=== PATIENT | female | born 1985 | race Caucasian/White ===

== ENCOUNTER 2016-06-08 12:30 | Emergency (ER) | payer OTHER ==
[~2016-06-08] VITALS: Ht 172.7 cm; Wt 104.7 kg
[~2016-06-08 12:30] MED LIST: GABA-113 PO; IBUP-103 PO; LEVO1TAB35 PO
[2016-06-08 12:32] VITALS: TEMP 36.8; Ht 172.7 cm; Wt 104.7 kg
[2016-06-08] MEDS ORDERED: SODIUM CHLORIDE 0.9% 1000ML 1,000 ML IV STA (12:42)
[2016-06-08] MEDS ORDERED: ACETAMINOPHEN 325 MG TAB PO STA (12:42)
[2016-06-08] MEDS ORDERED: ONDANSETRON INJ 2 MG/ML 2 ML VIAL IV STA ×2 (12:42→13:19)
[2016-06-08] MEDS ORDERED: ALBUTEROL HFA 8 GM INHALER INH ONE (12:45)
--- NOTE | 2016-06-08 12:45 | EMERGENCY ROOM VISIT NOTE ---
History Report prepared by Moisés: Jono Ramirez Under the Supervision of: Dr. Evelin Spivey M.D. First contact with patient: 12:37 Chief Complaint: COUGH Stated Complaint: COUGH History of Present Illness The patient is a 30 year old female who presents to the Emergency Room with complaints of a cough that began 2 days ago. The patient is experiencing some abdominal pain due to her cough. She is also experiencing some vomiting as well. She denies any history of asthma. She denies any fevers. The patient will be 30 weeks tomorrow. Source of History: patient Onset: 2 days ago Position: other (lungs) Symptom Intensity: moderate Quality: other (cough) Timing: other (episodic) Associated Symptoms: + abdominal pain, + vomiting, No fevers Review of Systems See HPI for pertinent positives & negatives. A total of 10 systems reviewed and were otherwise negative. Past Medical & Surgical Medical Problems: (1) section (2) Cholecystectomy Family History FH: cancer Social History Smoking Status: Former Smoker Alcohol Use: none Drug Use: none Marital Status: single Housing Status: lives with family Current/Historical Medications Scheduled Azithromycin (Zithromax Z-Riccardo), 1 PKT PO UD Hydrocodone/Acetaminophen 10MG/325MG ([place] 10MG/325MG), 1 TAB PO TID Ondasetron Odt (Zofran Odt), 4 MG SL Q6H Oseltamivir (Tamiflu), 75 MG PO BID Prednisone (Prednisone), 20 MG PO DAILY Allergies Coded Allergies: Chlorpromazine (Verified Allergy, Mild, HIVES, 11/30/13) Ketorolac Tromethamine (Verified Allergy, Mild, HIVES, 11/30/13) Cephalexin (Verified Allergy, Unknown, ., 11/30/13) Penicillins (Verified Allergy, Unknown, ., 11/30/13) Physical Exam Vital Signs Date Time Temp Pulse Resp B/P Pulse Ox O2 Delivery O2 Flow Rate FiO2 06/08/16 14:48 63 18 115/60 96 Room Air 06/08/16 13:12 Room Air 06/08/16 12:32 36.8 89 18 135/74 96 Room Air Physical Exam CONSTITUTIONAL: Frequent coughing. HEENT: No icterus, moist mucous membranes NECK: No meningismus, trachea is midline. CARDIOVASCULAR: Regular rate, normal perfusion RESPIRATORY: Unlabored breathing. Mild wheezes in all lung zapata. GASTROINTESTINAL: Non-tender GENITOURINARY: No flank tenderness MUSCULOSKELETAL: Full range of motion NEUROLOGIC: No acute gross focal deficits. PSYCHIATRIC: Normal affect SKIN: Normal for ethnicity. Medical Decision & Procedures ER Provider Diagnostic Interpretation: X-ray results as stated below per interpretation by me and the radiologist. CHEST 2 VIEWS ROUTINE CLINICAL HISTORY: Cough. 30 weeks . COMPARISON STUDY: Chest radiograph September 08, 2012. TECHNIQUE: The abdomen and pelvis were double shielded due to . PA and lateral chest radiographs were obtained. FINDINGS: No pneumothorax or pleural effusion is present. There are cholecystectomy clips. Pulmonary vascularity is normal. Cardiac size is normal. There is subtle interstitial thickening. Few nodular opacities are noted within the lungs. IMPRESSION: Subtle interstitial thickening with a few scattered nodular opacities within lungs. The findings favor an infectious process. No confluent consolidation. Electronically signed by: Benny Azevedo M.D. 06/08/2016 1:42 PM Dictated Date/Time: 06/08/2016 1:41 PM Laboratory Results 06/08/16 12:55 Red Blood Count 3.98, Mean Corpuscular Volume 88.9, Mean Corpuscular Hemoglobin 30.9, Mean Corpuscular Hemoglobin Concent 34.7, Mean Platelet Volume 8.9, Neutrophils (%) (Auto) 79.7, Lymphocytes (%) (Auto) 12.4, Monocytes (%) (Auto) 6.1, Eosinophils (%) (Auto) 0.5, Basophils (%) (Auto) 0.1, Neutrophils # (Auto) 13.04, Lymphocytes # (Auto) 2.03, Monocytes # (Auto) 0.99, Eosinophils # (Auto) 0.08, Basophils # (Auto) 0.01 06/08/16 12:55 Test 06/08/16 12:55 White Blood Count 16.35 K/uL (4.8-10.8) Red Blood Count 3.98 M/uL (4.2-5.4) Hemoglobin 12.3 g/dL (12.0-16.0) Hematocrit 35.4 % (37-47) Mean Corpuscular Volume 88.9 fL (80-100) Mean Corpuscular Hemoglobin 30.9 pg (25-34) Mean Corpuscular Hemoglobin Concent 34.7 g/dl (32-36) Platelet Count 145 K/uL (130-400) Mean Platelet Volume 8.9 fL (7.4-10.4) Neutrophils (%) (Auto) 79.7 % Lymphocytes (%) (Auto) 12.4 % Monocytes (%) (Auto) 6.1 % Eosinophils (%) (Auto) 0.5 % Basophils (%) (Auto) 0.1 % Neutrophils # (Auto) 13.04 K/uL (1.4-6.5) Lymphocytes # (Auto) 2.03 K/uL (1.2-3.4) Monocytes # (Auto) 0.99 K/uL (0.11-0.59) Eosinophils # (Auto) 0.08 K/uL (0-0.5) Basophils # (Auto) 0.01 K/uL (0-0.2) RDW Standard Deviation 42.4 fL (36.4-46.3) RDW Coefficient of Variation 13.1 % (11.5-14.5) Immature Granulocyte % (Auto) 1.2 % Immature Granulocyte # (Auto) 0.20 K/uL (0.00-0.02) Red Blood Cell Morphology Unremarkable Anion Gap 13.0 mmol/L (3-11) Est Creatinine Clear Calc Drug Dose 187.7 ml/min Estimated GFR () 144.9 Estimated GFR (Non- 125.0 BUN/Creatinine Ratio 8.9 (10-20) Calcium Level 8.5 mg/dl (8.5-10.1) Labs reviewed by ED physician. Medications Administered Medications (Trade) Dose Ordered Sig/Yomi Route Start Time Stop Time Status Last Admin Dose Admin Sodium Chloride (Nss 1000ml) 1,000 ml @ 0 mls/hr Q0M STAT IV 06/08/16 12:42 06/08/16 12:46 DC 06/08/16 13:09 0 MLS/HR Ondansetron HCl (Zofran Inj) 4 mg NOW STAT IV 06/08/16 12:42 06/08/16 12:46 DC 06/08/16 13:08 4 MG Acetaminophen (Tylenol Tab) 650 mg NOW STAT PO 06/08/16 12:42 06/08/16 12:46 DC 06/08/16 13:09 650 MG Albuterol (Ventolin Hfa Inhaler) 2 puffs NOW ONCE INH 06/08/16 12:45 06/08/16 12:46 DC 06/08/16 13:08 2 PUFFS Ondansetron HCl (Zofran Inj) 4 mg NOW STAT IV 06/08/16 13:19 06/08/16 13:20 DC 06/08/16 13:35 4 MG ED Course 1237: Past medical records reviewed. The patient was evaluated in room C2. A complete history and physical examination was performed. 1242: Acetaminophen 650 mg PO, Zofran Inj 4 mg IV, Sodium Chloride 1000 ml @ 0 mls/hr Wide Open IV 1245: Albuterol 2 puffs INH 1319: Zofran Inj 4 mg IV 1445: Upon reexamination the patient is resting. I discussed results and treatment plan with the patient. She verbalizes agreement and understanding. The patient is ready for discharge. Medical Decision Differential diagnoses include but are not limited to; viral syndrome, pneumonia , influenza, and wheezing. 40-year-old 30 weeks presents to emergency room for symptoms of viral infection including cough, rhinorrhea several episodes of nonbilious nonbloody vomiting and loose stools with crampy abdominal pain at times. On exam she had mild wheezing in all zapata without prior history of asthma. She refused influenza swab. Chest x-ray negative for obvious pneumonia. We discussed the pros and cons of various treatment options and she was subsequently given an albuterol inhaler here with spacer as well as prescriptions for prednisone, Zofran oral dissolvable tablets, as well as Zithromax and Tamiflu. Patient had no additional questions or concerns prior to discharge and was clearly able to repeat the risks and benefits and treatment options back to me. Impression Primary Impression: Viral syndrome Additional Impressions: Wheezing, Scribe Attestation The scribe's documentation has been prepared under my direction and personally reviewed by me in its entirety. I confirm that the note above accurately reflects all work, treatment, procedures, and medical decision making performed by me. Departure Information Dispostion Home / Self-Care Prescriptions Ondasetron Odt (ZOFRAN ODT) 4 Mg Tab 4 MG SL Q6H for Nausea, #20 TAB Prov: Evelin Spivey MD 06/08/16 Oseltamivir (Tamiflu) 75 Mg Cap 75 MG PO BID, #10 CAP Prov: Evelin Spivey MD 06/08/16 Azithromycin (ZITHROMAX Z-RICCARDO) 250 Mg Tab 1 PKT PO UD for 5 Days, #6 TAB Prov: Evelin Spivey MD 06/08/16 Prednisone (Prednisone) 20 Mg Tab 20 MG PO DAILY for 5 Days, #5 TAB Prov: Evelin Spivey MD 06/08/16 Referrals No Doctor, Assigned (PCP) Forms HOME CARE DOCUMENTATION FORM, IMPORTANT VISIT INFORMATION Patient Instructions A Signature Page, ED Bronchitis Viral, ED URI Viral W Wheezing, ED Viral Syndrome, [facility]
[2016-06-08] MEDS ORDERED: HYDR-4079 PO (12:49)
[2016-06-08 13:08] LABS: HEMATOCRIT 35.4 % (37-47); MEAN CELL VOLUME 88.9 fL (80-100); MEAN CORPUSCULAR HEMOGLOBIN 30.9 pg (25-34); MEAN CORPUSCULAR HGB CONC 34.7 g/dl (32-36); MEAN PLATELET VOLUME 8.9 fL (7.4-10.4); PLATELET COUNT 145 K/uL (130-400); RED BLOOD COUNT 3.98 M/uL (4.2-5.4); WHITE BLOOD COUNT 16.35 K/uL (4.8-10.8)
[2016-06-08 13:27] LABS: BUN/CREATININE RATIO 8.9 (10-20); CALCIUM 8.5 mg/dl (8.5-10.1); CREATININE 0.55 mg/dl (0.60-1.20); POTASSIUM 3.4 mmol/L (3.5-5.1)
[2016-06-08 13:29] LABS: BASO % 0.1 %; BASO ABS # 0.01 K/uL (0-0.2); COMPLETE YES; EOS % 0.5 %; IG% 1.2 %; LYMPH % 12.4 %; LYMPH ABS # 2.03 K/uL (1.2-3.4); MONO % 6.1 %; NEUT % 79.7 %
--- NOTE | 2016-06-08 13:44 | DIAGNOSTIC IMAGING REPORT ---
CHEST 2 VIEWS ROUTINE CLINICAL HISTORY: Cough. 30 weeks . COMPARISON STUDY: Chest radiograph September 08, 2012. TECHNIQUE: The abdomen and pelvis were double shielded due to . PA and lateral chest radiographs were obtained. FINDINGS: No pneumothorax or pleural effusion is present. There are cholecystectomy clips. Pulmonary vascularity is normal. Cardiac size is normal. There is subtle interstitial thickening. Few nodular opacities are noted within the lungs. IMPRESSION: Subtle interstitial thickening with a few scattered nodular opacities within lungs. The findings favor an infectious process. No confluent consolidation. Electronically signed by: Benny Azevedo M.D. 06/08/2016 1:42 PM Dictated Date/Time: 06/08/2016 1:41 PM
[2016-06-08] MEDS ORDERED: PRED20TA PO (14:39)
[2016-06-08] MEDS ORDERED: AZITTAB PO (14:39)
[2016-06-08] MEDS ORDERED: OSEL75CA12 PO (14:40)
[2016-06-08] MEDS ORDERED: ONDA4TAB10 SL (14:40)
[2016-06-08 14:48] VITALS: BP 115/60; PULSE 63; O2SAT 96
[2016-08-01] MEDS ORDERED: HYDR-5688 PO (11:48)
[2016-08-01] MEDS ORDERED: ONDA4TAB46 PO (11:48)
[2016-08-01] MEDS ORDERED: PEDICHW50 PO (11:48)
== END 2016-06-08 14:50 | disposition home or self-care (01) ==
LOC: C.EDB 12:31 → C.EDC 14:50
DX: O26.93 Pregnancy related conditions, unspecified, third trimester (principal); B34.9 Viral infection, unspecified; R06.2 Wheezing; Z90.49 Acquired absence of other specified parts of digestive tract; Z87.891 Personal history of nicotine dependence; Z79.899 Other long term (current) drug therapy; Z88.0 Allergy status to penicillin; Z88.8 Allergy status to other drugs, medicaments and biological substances; Z80.9 Family history of malignant neoplasm, unspecified

== ENCOUNTER 2016-08-09 10:18 | Inpatient (IN) | payer OTHER ==
--- NOTE | 2016-08-01 12:12 | PAT Medication Instructions ---
Service Date Aug 01, 2016. Current Home Medication List Hydrocodone/Acetaminophen 5MG/325MG ([place] 5MG/325MG), 1 TABLET PO PRN PRN for Pain Ondansetron Hcl (Zofran), 4 MG PO PRN PRN for Nausea Pediatric Multiple Vitamin W/ ([place] Chewable), 2 TAB PO QAM Medication Instructions For Your Scheduled Surgery - Hold the following medications the morning of surgery: Pediatric Multiple Vitamin W/ ([place] Chewable), 2 TAB PO QAM - Take the following medications the morning of surgery with a sip of water: Ondansetron Hcl (Zofran), 4 MG PO PRN PRN for Nausea Hydrocodone/Acetaminophen 5MG/325MG ([place] 5MG/325MG), 1 TABLET PO PRN PRN for Pain (okay to take up to 4 hours prior to surgery if needed) - Take the following medications as scheduled the night before surgery: Ondansetron Hcl (Zofran), 4 MG PO PRN PRN for Nausea Hydrocodone/Acetaminophen 5MG/325MG ([place] 5MG/325MG), 1 TABLET PO PRN PRN for Pain If you have any questions please call us at [phone] (Akiko Batista PA-C) or [phone] or [phone]
[2016-08-01 13:46] LABS: BASO % 0.2 %; BASO ABS # 0.02 K/uL (0-0.2); COMPLETE YES; EOS % 0.7 %; HEMATOCRIT 38.7 % (37-47); IG% 2.3 %; LYMPH ABS # 1.81 K/uL (1.2-3.4); MEAN CELL VOLUME 88.6 fL (80-100); MEAN CORPUSCULAR HEMOGLOBIN 30.7 pg (25-34); MEAN CORPUSCULAR HGB CONC 34.6 g/dl (32-36); MEAN PLATELET VOLUME 9.4 fL (7.4-10.4); MONO % 7.7 %; NEUT % 74.1 %; PLATELET COUNT 144 K/uL (130-400); RED BLOOD COUNT 4.37 M/uL (4.2-5.4); WHITE BLOOD COUNT 12.09 K/uL (4.8-10.8)
--- NOTE | 2016-08-01 15:25 | HISTORY & PHYSICAL EXAMINATION ---
DATE OF ADMISSION: 08/14/2016 CHIEF COMPLAINT: Term elective repeat section. HISTORY OF PRESENT ILLNESS: The patient is a 30-year-old female para 1-0-0-1 who presents for an elective repeat section. Patient refusing a trial of labor after . PAST MEDICAL HISTORY: Significant for MTHFR homozygous gene mutation. She does have a history of cardiac surgery as a child, unsure if this involved the valve or just VSD repair. The patient had a cardiology consult respectfully and this had a normal EKG with no evidence of any findings that were worrisome by the offline cutter. SOCIAL HISTORY: The patient is a smoker. She is on narcotics for back pain, otherwise denies alcohol. PAST SURGICAL HISTORY: Cardiac surgery as described as a child and previous , cholecystectomy 2007, tonsils at age 11 and ovarian cyst at age 2 months. ALLERGIES: CIPRO, KETOROLAC, Chlorpromazin, AND PENICILLIN. The patient is able to take amoxicillin however. MEDICATIONS: vitamins. PHYSICAL EXAMINATION: HEAD, EYES, EARS, NOSE, AND THROAT: Within normal limits. LUNGS: Clear to auscultation. COR: Regular rate and rhythm. ABDOMEN: Soft, nontender, gravid. GBS is positive. NEUROLOGICALLY: Intact. MTDD
[~2016-08-09] VITALS: Ht 172.7 cm; Wt 106.0 kg
[2016-08-09] VITALS (9 sets, daily range): BP systolic 122–124; BP diastolic 77–78; PULSE 56–68; TEMP 36.6–36.8; O2SAT 94–97; Ht 172.7 cm; Wt 106.0 kg
[~2016-08-09 10:18] MED LIST changes: +CITRIC ACID/SODIUM CITRATE 15 ML UDC PO SCH; -GABA-113 PO; +HYDR-5688 PO; -IBUP-103 PO; -LEVO1TAB35 PO; +ONDA4TAB46 PO; +PEDICHW50 PO
[2016-08-09] MEDS ORDERED: LACTATED RINGER'S 1000ML 1,000 ML IV SCH ×2 (10:45→13:12)
[2016-08-09] MEDS ORDERED: CITRIC ACID/SODIUM CITRATE 15 ML UDC PO ONE (11:00)
[2016-08-09] MEDS ORDERED: LACTATED RINGER'S 1000ML 1,000 ML IV ONE (11:00)
--- NOTE | 2016-08-09 11:07 | History & Physical Bridge Note ---
H&P Re-Evaluation Bridge Note: I have examined the patient, reviewed the History & Physical and in the interval since the performance of the History & Physical I have noted the following changes of clinical significance: Patient spontaneously ruptured this morning, is scheduled for a repeat C/S, will proceed with her surgery.
[2016-08-09] MEDS ORDERED: CEFAZOLIN IV 3,000 MG in DEXTROSE 5% 50ML IV SCH (11:30)
[2016-08-09 11:37] LABS: HEMATOCRIT 39.6 % (37-47); MEAN CELL VOLUME 86.8 fL (80-100); MEAN CORPUSCULAR HEMOGLOBIN 30.9 pg (25-34); MEAN CORPUSCULAR HGB CONC 35.6 g/dl (32-36); MEAN PLATELET VOLUME 8.9 fL (7.4-10.4); PLATELET COUNT 146 K/uL (130-400); RED BLOOD COUNT 4.56 M/uL (4.2-5.4); WHITE BLOOD COUNT 16.11 K/uL (4.8-10.8)
[2016-08-09 11:59] LABS: COMPLETE YES; LYMPH ABS # 2.95 K/uL (1.2-3.4); LYMPHOCYTE % 18.3 %; META ABS # 0.27 K/uL (0-0); METAMYELOCYTE % 1.7 %; NEUTROPHILS % 77.4 %
[2016-08-09] MEDS ORDERED: MoRPHine SULFATE PF 1 MG/ML 10 ML AMP/VIAL ONE (12:11)
[2016-08-09] MEDS ORDERED: FENTANYL CITRATE INJ 50 MCG/1 ML 2 ML VIAL ONE (12:11)
[2016-08-09] MEDS ORDERED: METOCLOPRAMIDE HCL INJ 5 MG/ML 2 ML VIAL ONE (12:46)
[2016-08-09] MEDS ORDERED: OXYTOCIN INJ 10 UNITS/ML VIAL ONE ×4 (12:46→13:05)
[2016-08-09] MEDS ORDERED: OXYTOCIN INJ 30 UNITS in LACTATED RINGER'S 1000ML 1,000 ML IV SCH (13:12)
[2016-08-09] MEDS ORDERED: DIPHTHERIA/TETANUS/PERTUSSIS 0.5 ML SYR/VIAL IM. ONE (13:15)
[2016-08-09] MEDS ORDERED: MAGNESIUM HYDROXIDE SUSP 30 ML UDC PO PRN (13:15)
[2016-08-09] MEDS ORDERED: BENZOCAINE 20% AER SPR 82.5 GM CAN EXT PRN (13:15)
[2016-08-09] MEDS ORDERED: LANOLIN OINT EXT PRN ×2 (13:15)
[2016-08-09] MEDS ORDERED: SENNA 8.6 MG TAB PO PRN (13:15)
[2016-08-09] MEDS ORDERED: SUPERCREAM 0.870 % 15GM JAR EXT PRN (13:15)
[2016-08-09] MEDS ORDERED: HYDROCORTISONE ACETATE 25 MG SUPP PR PRN (13:15)
--- NOTE | 2016-08-09 13:15 | [facility] Post Operative Brief Note ---
Immediate Operative Summary Operative Date Aug 09, 2016. Pre-Operative Diagnosis 1. Term IUP 2. History of previous caesarean section 3. Patient requests a repeat caesarean section 4. Spontaneous rupture of membranes Post-Operative Diagnosis Same Procedure(s) Performed Repeat Lower Uterine Transverse Caesarean Section for the of a viable female child at 1243. Surgeon Dr. Gaytan General Sales Manager Surgeon(s) Dr. Rogers Estimated Blood Loss 500cc Findings Patient delivered a viable female in the vertex position via repeat C/S. An intact placenta with a 3 VC delivered manually 1at 1245 and sent to pathology. Cord blood obtained. normal uterus and bilateral tubes and ovaries noted. Patient and baby tolerated the surgery well and was sent to recovery with stable vital signs. Fluids (cc crystalloids) 1200 Specimens 1. Placenta: Examine. 2. Cord blood obtained. Drains Martinez to gravity Anesthesia Spinal Complication(s) None Disposition L&D
[2016-08-09] MEDS ORDERED: NALOXONE HCL INJ 1 MG in SODIUM CHLORIDE 0.9% 1000ML 1,000 ML IV PRN (13:37)
[2016-08-09] MEDS ORDERED: NALOXONE HCL INJ 0.08 MG in SYRINGE 1.8 ML IV PRN (13:37)
[2016-08-09] MEDS ORDERED: SODIUM CHLORIDE 0.9% 1000ML 1,000 ML IV PRN (13:37)
[2016-08-09] MEDS ORDERED: LACTATED RINGER'S 1000ML 500 ML IV PRN (13:37)
[2016-08-09] MEDS ORDERED: ONDANSETRON INJ 2 MG/ML 2 ML VIAL IV PRN (13:45)
[2016-08-09] MEDS ORDERED: NO NARCOTICS OR SEDATIVES SCH (13:45)
[2016-08-09] MEDS ORDERED: DiphenhydrAMINE HCL 50 MG/ML VIAL IV PRN (13:45)
[2016-08-09] MEDS ORDERED: LORAZEPAM 1 MG TAB PO PRN (13:45)
[2016-08-09] MEDS ORDERED: NALOXONE HCL 0.4 MG/1 ML VIAL/CARP IV PRN (13:45)
[2016-08-09] MEDS ORDERED: METOCLOPRAMIDE HCL INJ 20 MG in SODIUM CHLORIDE 0.9% 50ML 50 ML IV PRN (13:45)
[2016-08-09] MEDS ORDERED: LORAZEPAM INJ 0.5 MG in SYRINGE 0.75 ML IV PRN (13:45)
[2016-08-09] MEDS ORDERED: MoRPHine SULFATE PF 1 MG/ML 10 ML AMP/VIAL EPI PRN (13:45)
[2016-08-09] MEDS ORDERED: NALBUPHINE HCL INJ 10 MG/ML AMP IV PRN (13:45)
[2016-08-09] MEDS ORDERED: MoRPHine SULFATE 2 MG/ML CARP IV PRN (13:45)
[2016-08-09] MEDS ORDERED: EpHEDrine SULFATE INJ 50 MG/ML AMP IV PRN (13:45)
[2016-08-09] MEDS ORDERED: PROMETHAZINE HCL INJ 25 MG in SODIUM CHLORIDE 0.9% 50ML 50 ML IV PRN (13:45)
[2016-08-09] MEDS ORDERED: ACETAMINOPHEN 1000 MG/100 ML IV IV ONE (14:01)
[2016-08-09] MEDS: ACETAMINOPHEN IV 1,000 MG in EMPTY BAG 0 ML IV SCH ×2 (14:24→23:02)
[2016-08-09] MEDS: DiphenhydrAMINE HCL 50 MG/ML VIAL IV PRN ×2 (14:53→23:47)
--- NOTE | 2016-08-09 15:52 | OPERATIVE REPORT ---
DATE OF OPERATION: 08/09/2016 PREOPERATIVE DIAGNOSES: 1. Intrauterine at 38 weeks and 3 days gestation. 2. History of previous section, requesting repeat section. 3. Spontaneous rupture of membranes. POSTOPERATIVE DIAGNOSES: Same. OPERATIVE PROCEDURE: Repeat low transverse section. SURGEON: Dr. Gaytan. VENDOR RELATIONSHIP MANAGER: Dr. Rogers. ANESTHESIA: Spinal. ESTIMATED BLOOD LOSS: 500 mL. IV FLUIDS: 1200 mL crystalloid. SPECIMENS: Placenta and cord blood. DRAINS: Martinez to gravity. COMPLICATIONS: None. DISPOSITION: To labor and delivery. OPERATIVE FINDINGS: The patient delivered a viable female infant in the vertex position via repeat section. An intact placenta with 3-vessel cord was delivered manually at 12:45 p.m. and sent to pathology. Cord blood was obtained. Normal uterus and bilateral tubes and ovaries were noted. The patient and baby tolerated the surgery well and were sent to recovery with stable vital signs. OPERATIVE PROCEDURE IN DETAIL: The patient was taken to the operating room where spinal anesthesia was administered. The patient was immediately placed in dorsal supine position with a left lateral tilt and was prepped and draped in a manner appropriate for the procedure. Once anesthesia was found to be adequate, a Pfannenstiel skin incision was made over the previous surgical scar and was carried down through to a layer of the rectus fascia. The fascia was nicked in the midline and extended bilaterally with electrocautery. The superior aspect of the fascial incision was grasped with Damian clamps, elevated, and the rectus muscles were dissected off with the use of the curved Donaldson scissors and electrocautery. Likewise, the inferior aspect of the fascial incision was grasped with Damian clamps, elevated, and the rectus muscles were off with the use of the electrocautery and curved Donaldson scissors. The rectus muscles were in midline. There were omental adhesions to the anterior abdominal wall which were carefully cauterized and lysed. The peritoneal incision was then extended cephalocaudally with gentle traction. An Guilherme retaining retractor was placed within the abdomen. The bladder blade was then placed within the abdomen as well. The vesicouterine peritoneum was identified and a bladder flap was created with Metzenbaum scissors and digital traction. The bladder flap was pushed away from the lower uterine segment. A transverse incision was then made on the uterus and extended bilaterally with digital traction. The head was identified and delivered through the incision along with the rest of the body. Baby was bulb suctioned at delivery. Cord was clamped x2 and cut. The baby was immediately handed to an awaiting international marketing executive for further evaluation and management. Please see their notes for further baby assessment. Cord blood was then obtained and intact placenta with 3-vessel cord was delivered through the incision manually. The uterus was then exteriorized and wrapped in a moist laparotomy sponge. The uterus was then cleared of any trailing membrane and debris with the laparotomy sponge. The uterine incision was grasped with ring forceps 4 quadrants and was closed with 0 Vicryl suture in a continuous locking fashion. A second 0 Vicryl suture was used in imbricating fashion to ensure hemostasis. Any residual bleeding was suture ligated with 0 Vicryl suture in a [id number] interrupted fashion. Excellent hemostasis was noted at the uterine incision. The posterior cul-de-sac was then irrigated with warm saline solution. The uterus was then placed back within its normal anatomic position within the abdomen. The anterior cul-de-sac was then irrigated with warm saline solution. The uterine incision was then noted to be hemostatic once again. All instruments were then removed from the abdomen. Seprafilm was placed over the uterine incision along the fundus of the uterus. The Guilherme retractor was then removed from the abdomen. The rectus fascia was then grasped with Damian clamps and was closed with 0 Vicryl suture in continuous running fashion. The subcutaneous tissue was then reapproximated with 2-0 Vicryl suture in continuous running fashion. Skin was then closed with clarence. Excellent hemostasis was noted through all tissue layers. Both patient and baby tolerated the surgery well and was sent to recovery with stable vital signs. I attest to the content of the Intraoperative Record and any orders documented therein. Any exceptio ns are noted below.
--- NOTE | 2016-08-09 15:59 | Anesthesiology Progress Note ---
Anesthesia Post Op Note Date & Time Aug 09, 2016 at 15:59 Vital Signs Pain Intensity: 6.0 Notes Mental Status: alert / awake / arousable, participated in evaluation Pt Amnestic to Procedure: No Nausea / Vomiting: adequately controlled Pain: adequately controlled Airway Patency, RR, SpO2: stable & adequate BP & HR: stable & adequate Hydration State: stable & adequate Neuraxial Anesthesia: was administered, sensory block is resolving Anesthetic Complications: no major complications apparent
[2016-08-09] MEDS: SIMETHICONE 80 MG CHEW PO SCH ×2 (17:35→19:43)
[2016-08-09] MEDS: DOCUSATE SODIUM 100 MG CAP PO SCH (19:43)
[2016-08-09] MEDS: MEPERIDINE HCL 25 MG/ML CARP IV PRN (19:44)
[2016-08-10] VITALS (10 sets, daily range): BP systolic 108–127; BP diastolic 69–79; PULSE 55–85; TEMP 36.6–36.9; O2SAT 95–97
[2016-08-10] MEDS: MEPERIDINE HCL 25 MG/ML CARP IV PRN (05:15)
[2016-08-10] MEDS: ACETAMINOPHEN IV 1,000 MG in EMPTY BAG 0 ML IV SCH (05:56)
[2016-08-10] MEDS ORDERED: OXYCODONE/ACETAMINOPHEN 5-325 TAB PO PRN (07:30)
[2016-08-10] MEDS ORDERED: DC INTRASPINAL MORPHINE ONE (07:30)
[2016-08-10] MEDS ORDERED: MEPERIDINE HCL 50 MG/ML CARP IV PRN (07:30)
[2016-08-10] MEDS ORDERED: ONDANSETRON INJ 2 MG/ML 2 ML VIAL IV PRN (07:30)
[2016-08-10] MEDS ORDERED: ZOLPIDEM TARTRATE 5 MG TAB PO PRN (07:30)
[2016-08-10] MEDS ORDERED: NURSING VERBAL MED ORDER ONE (08:00)
[2016-08-10 08:10] LABS: BASO % 0.1 %; BASO ABS # 0.01 K/uL (0-0.2); COMPLETE YES; EOS % 0.7 %; HEMATOCRIT 39.2 % (37-47); IG% 1.2 %; LYMPH ABS # 1.56 K/uL (1.2-3.4); MEAN CELL VOLUME 88.5 fL (80-100); MEAN CORPUSCULAR HEMOGLOBIN 31.4 pg (25-34); MEAN CORPUSCULAR HGB CONC 35.5 g/dl (32-36); MEAN PLATELET VOLUME 9.1 fL (7.4-10.4); MONO % 5.2 %; NEUT % 83.8 %; PLATELET COUNT 122 K/uL (130-400); RED BLOOD COUNT 4.43 M/uL (4.2-5.4); WHITE BLOOD COUNT 17.35 K/uL (4.8-10.8)
[2016-08-10] MEDS: IBUPROFEN 600 MG TAB PO PRN ×3 (08:46→19:54)
[2016-08-10] MEDS: OXYCODONE HCL IR 5 MG TAB (IMMEDIATE RELEASE) PO PRN ×2 (08:47→19:54)
[2016-08-10] MEDS: SIMETHICONE 80 MG CHEW PO SCH ×4 (08:47→19:53)
[2016-08-10] MEDS: PRENATAL VITAMIN TAB PO SCH (08:48)
[2016-08-10] MEDS: FERROUS SULFATE 325 MG TAB PO SCH (08:48)
[2016-08-10] MEDS: DOCUSATE SODIUM 100 MG CAP PO SCH ×2 (08:48→19:53)
--- NOTE | 2016-08-10 09:49 | Surgery Progress Note ---
Surgery Progress Note Date of Service Aug 10, 2016. Subjective Post OP Day: 1 + ambulating, + feeling well Objective Vital Signs: Date Time Temp Pulse Resp B/P Pulse Ox O2 Delivery O2 Flow Rate FiO2 08/10/16 07:30 Room Air 08/10/16 07:30 36.9 65 18 127/79 95 Room Air 08/10/16 06:00 20 95 08/10/16 05:00 18 96 08/10/16 04:30 36.6 85 18 111/72 95 Room Air 08/10/16 04:00 20 96 08/10/16 03:00 18 95 08/10/16 02:00 18 97 08/10/16 01:00 18 96 08/10/16 00:00 36.8 55 18 108/69 95 Room Air 08/10/16 00:00 18 95 08/10/16 00:00 95 Room Air 08/09/16 23:05 20 95 08/09/16 22:05 20 95 08/09/16 21:05 16 94 08/09/16 20:05 20 95 08/09/16 19:50 36.8 56 20 124/78 95 Room Air 08/09/16 19:05 20 97 08/09/16 18:05 16 95 08/09/16 17:05 16 96 08/09/16 16:05 36.6 68 20 122/77 96 Room Air 08/09/16 16:05 96 Room Air 08/09/16 16:05 20 96 08/09/16 16:05 96 Room Air General Appearance: WD/WN, no apparent distress Abdomen: non tender, non distended, soft Incision(s): clean, dry, intact Extremities: normal inspection, no pedal edema Laboratory Results: Results Past 24 Hours Test 08/09/16 11:25 08/10/16 07:55 Range/Units White Blood Count 16.11 17.35 4.8-10.8 K/uL Red Blood Count 4.56 4.43 4.2-5.4 M/uL Hemoglobin 14.1 13.9 12.0-16.0 g/dL Hematocrit 39.6 39.2 37-47 % Mean Corpuscular Volume 86.8 88.5 80-100 fL Mean Corpuscular Hemoglobin 30.9 31.4 25-34 pg Mean Corpuscular Hemoglobin Concent 35.6 35.5 32-36 g/dl Platelet Count 146 122 130-400 K/uL Mean Platelet Volume 8.9 9.1 7.4-10.4 fL RDW Standard Deviation 43.0 43.9 36.4-46.3 fL RDW Coefficient of Variation 13.7 13.5 11.5-14.5 % Neutrophils % (Manual) 77.4 % Lymphocytes % (Manual) 18.3 % Monocytes % (Manual) 2.6 % Metamyelocytes % 1.7 % Neutrophils # (Manual) 12.47 1.4-6.5 K/uL Total Absolute Neutrophils 12.47 1.4-6.5 K/uL Lymphocytes # (Manual) 2.95 1.2-3.4 K/uL Total Absolute Lymphocytes 2.95 1.2-3.4 K/uL Monocytes # (Manual) 0.42 0.11-0.59 K/uL Metamyelocytes # 0.27 0-0 K/uL Red Blood Cell Morphology Unremarkable Neutrophils (%) (Auto) 83.8 % Lymphocytes (%) (Auto) 9.0 % Monocytes (%) (Auto) 5.2 % Eosinophils (%) (Auto) 0.7 % Basophils (%) (Auto) 0.1 % Neutrophils # (Auto) 14.54 1.4-6.5 K/uL Lymphocytes # (Auto) 1.56 1.2-3.4 K/uL Monocytes # (Auto) 0.91 0.11-0.59 K/uL Eosinophils # (Auto) 0.12 0-0.5 K/uL Basophils # (Auto) 0.01 0-0.2 K/uL Immature Granulocyte % (Auto) 1.2 % Immature Granulocyte # (Auto) 0.21 0.00-0.02 K/uL Assessment & Plan regular diet POD#1 advance care and diet
[2016-08-10] MEDS: OXYCODONE/ACETAMINOPHEN 5-325 TAB PO PRN ×2 (14:36→15:24)
[2016-08-10] MEDS ORDERED: BISACODYL 5 MG TABEC PO ONE (22:00)
[2016-08-11 00:01] VITALS: BP 116/78; PULSE 77; TEMP 36.5
[2016-08-11] MEDS: IBUPROFEN 600 MG TAB PO PRN ×4 (00:12→12:42)
[2016-08-11] MEDS: OXYCODONE/ACETAMINOPHEN 5-325 TAB PO PRN ×4 (00:12→12:42)
[2016-08-11 07:11] LABS: HEMATOCRIT 37.1 % (37-47)
[2016-08-11 07:45] VITALS: BP 127/81; PULSE 69; TEMP 36.9
[2016-08-11] MEDS: SIMETHICONE 80 MG CHEW PO SCH ×2 (08:36→12:40)
[2016-08-11] MEDS: FERROUS SULFATE 325 MG TAB PO SCH (08:37)
[2016-08-11] MEDS: DOCUSATE SODIUM 100 MG CAP PO SCH (08:37)
[2016-08-11] MEDS: PRENATAL VITAMIN TAB PO SCH (08:37)
[2016-08-11] MEDS ORDERED: NCDT21 TD (10:57)
[2016-08-11] MEDS ORDERED: HYDR-5688 PO (10:57)
[2016-08-11] MEDS ORDERED: MTR600X PO (10:57)
--- NOTE | 2016-08-11 10:59 | Discharge Instructions ---
Discharge Instructions Date of Service Aug 11, 2016. Admission Reason for Admission: Section Discharge Discharge Diagnosis / Problem: termpregnancy delivered Discharge Goals Goal(s): Routine recovery after Activity Recommendations Activity Limitations: as noted below Lifting Limitations: no more than 10 pounds, gradually increase as tolerated Exercise/Sports Limitations: gradually increase as tolerated May Resume Sexual Activity: after follow-up appointment Shower/Bathe: no limitations Driving or Machine Use: resume 3 days after discharge . Instructions / Follow-Up Instructions / Follow-Up next week for clarence ACTIVITY RECOMMENDATIONS: * Gradual return to full activity over the next 2-3 weeks. * No lifting - nothing heavier than baby over the next 2-3 weeks. * Do not engage in vigorous exercise, sexual activity or sports until cleared by your physician. * Do not drive or operate any motorized equipment until cleared by your physician. * You may shower/bathe daily. BREAST CARE: If you are not breast feeding: * Wear a supportive bra 24 hours a day for one to two weeks. * Avoid stimulating your breasts and nipples as much as possible during the first few weeks after delivery. * When taking a shower, have the warm water hit your back, not breasts. * When your breasts feel full, apply ice packs. Usually three to four times a day helps ease the discomfort. * Take a mild pain medication (Tylenol/Motrin) when you are uncomfortable. If breast feeding: * Use breast milk to lubricate nipples. Lansinoh cream may be used for sore nipples. You do not need to remove cream prior to breast feeding. If using a different brand of cream, check the label for directions regarding removal of cream prior to nursing. * Wear a supportive bra. * If having problems with breasts or breast feeding, call a business travel consultant or your health care provider. OVER THE COUNTER MEDICATION: * For discomfort or pain, you may use Acetaminophen (Tylenol), Ibuprofen (Advil ), or Naproxen (Aleve) following the package directions. * For constipation you may use Colace following the package directions. SPECIAL CARE INSTRUCTIONS: When you are discharged from the hospital, it is important for you to follow the instructions listed below: * During the first week at home, you should be able to care for yourself and your baby. In addition, the usual light household activities are encouraged. * Limit your activities to the way you feel. Do not try to clean the house or move furniture. Be sensible. * If you actively engage in sports and have done so up until the time of your delivery, you may resume these activities as soon as you feel able. This may take up to one month or even longer. Use good judgment. * Continue to take your vitamins for at least six weeks after the of your baby. * Your diet need not be limited unless you were on a special diet before your delivery. Breast-feeding mothers need around 2500 calories per day and at least 64-80 ounces of fluid per day (8 to 10 glasses). * You should eat foods from the four major food groups. Crash diets or fad diets are to be avoided. Eating lean meats, fresh fruits and vegetables, low-fat dairy products, high fiber foods and a regular exercise program, will help you get back to your pre- weight without putting your health at risk. * Constipation is sometimes a problem after delivery. Take a mild laxative as needed. If breast feeding, Milk of Magnesia is acceptable to use. You may use a suppository or Fleets enema if no episiotomy. * A daily shower or tub bath is suggested. Be sure to thoroughly and gently dry the perineum. * A bloody vaginal discharge will usually continue until around four weeks post . A small amount of bleeding may continue for as long as six weeks. Vaginal discharge changes from the bright red bleeding after delivery to pink then brownish and finally yellowish-pink before becoming white and disappearing. * Bleeding may increase with activity. Your first period may come in 4-8 weeks. If you are breast feeding, your period may be delayed even longer. * [place] (sex) can begin whenever both you and your partner feel comfortable and do not have any form of genital infection. It is recommended that you wait at least six weeks for internal and external healing to occur. If you have questions, please talk to your health care practitioner. A condom should be used to prevent infection and . * Foreplay, gentle intercourse and lubrication is very important the first several times to prevent pain. A water-based lubricant such as K-Y jelly or Astroglide may be used. * Tampons and/or Douching should be avoided until after six weeks check-up. * If you have RH negative blood and your baby is RH positive, you will receive RHOGAM by injection prior to discharge. The nurse will give you a card to keep with you that has the date and place that you received RHOGAM after delivery. * During your care, you had a Rubella screen done to check for the presence of rubella antibodies in your blood. If your test was negative, you will receive a Rubella vaccine prior to discharge. This vaccine may cause a fever, soreness at the injection site and flu-like symptoms. If these symptoms persist, notify your health care practitioner. is not advised for three months after a Rubella vaccine. * Verbalizes understanding of car seat law as reviewed with patient nursing. * Car Seat hand-out given and reviewed with patient by nursing. * Shaken baby information reviewed with patient by nursing. Call you doctor if: * Heavy bleeding (saturating several pads an hour) or passing clots the size of your fist. * A fever >101 degrees F (38.3 degrees C) on two occasions four hours apart and /or chills. * Unusual pain in the pelvic or vaginal areas. Pain should improve each day . * Call the doctor for any increased redness, drainage or swelling around the incision and any pain unrelieved by prescribed pain medication. * Any signs or symptoms of phlebitis (possible blood clots forming in the veins ): leg pain, warm, red or swollen area on leg. * "Baby Blues" lasting longer than two weeks. If you have any questions or concerns, call your health care practitioner at . FOLLOW-UP VISIT: * Incision check (staple removal) in 1 week. Please call doctor's office at to set up appointment. * Please call the office at to schedule a 6 week examination. It is important you keep this appointment. * It is important for you to make arrangements for either yearly or twice yearly check-ups thereafter. Current Hospital Diet Patient's current hospital diet: Regular OB Diet Discharge Diet Recommended Diet: Regular OB Diet Fluid Restriction: None Procedures Procedures Performed: Repeat Lower Uterine Transverse Caesarean Section for the of a viable female child at 1243. Pending Studies Studies pending at discharge: no Medical Emergencies . Who to Call and When: Medical Emergencies: If at any time you feel your situation is an emergency, please call 911 immediately. . Non-Emergent Contact Non-Emergency issues call your: Primary Care Provider . . "Provider Documentation" section prepared by Neil Rogers. VTE Core Measure Inpt VTE Proph given/why not?: Treatment not indicated
[2016-08-11] MEDS ORDERED: NICOTINE 21 MG/24 HR TDSY TD SCH (11:00)
--- NOTE | 2016-08-11 11:01 | Surgery Progress Note ---
Surgery Progress Note Date of Service Aug 11, 2016. Subjective Post OP Day: 2 + ambulating, + feeling well, + flatus, + pain controlled Objective Vital Signs: Date Time Temp Pulse Resp B/P Pulse Ox O2 Delivery O2 Flow Rate FiO2 08/11/16 07:45 36.9 69 20 127/81 Room Air 08/11/16 00:01 36.5 77 18 116/78 Room Air 08/11/16 00:01 Room Air 08/10/16 16:00 Room Air 08/10/16 16:00 36.8 78 6 122/78 Room Air General Appearance: no apparent distress Abdomen: non tender, non distended Extremities: non-tender, normal inspection Laboratory Results: Results Past 24 Hours Test 08/11/16 06:35 Range/Units Hemoglobin 12.6 12.0-16.0 g/dL Hematocrit 37.1 37-47 % Assessment & Plan POD#2 discharged POD#1 advance care and diet
[2016-08-11 13:00] VITALS: BP_DIAS 81; PULSE 69; TEMP 36.9
[2016-08-11] MEDS ORDERED: BISACODYL 10 MG SUPP PR PRN (13:15)
--- NOTE | 2016-08-13 07:29 | Discharge Summary ---
Discharge Summary Date of Service Aug 13, 2016. Discharge Summary Admission Date: Aug 09, 2016 at 10:18 Discharge Date: Aug 11, 2016 Discharge Disposition: Home Principal Diagnosis: Term , Hx prior C/S requesting repeat, SROM Procedures: Repeat Section Medication Reconciliation New Medications: Ibuprofen (Ibuprofen) 600 Mg Tab 600 MG PO Q4H PRN for Pain, [place], Cramping, or Fever, #30 TAB 2 Refills Nicotine (Nicotine) 1 Patch Tdsy 1 PATCH TD QAM, #30 2 Refills Continued Medications: Hydrocodone/Acetaminophen 5MG/325MG ([place] 5MG/325MG) Tab 1 TABLET PO PRN PRN for Pain, #20 TAB 0 Refills (This prescription has been renewed) PRN PAIN Ondansetron Hcl (Zofran) 4 Mg Tab 4 MG PO PRN PRN for Nausea, TAB Pediatric Multiple Vitamin W/ (Flintstones Chewable) 1 Chw Chw 2 TAB PO QAM, TAB Admission Information HPI (per Admitting provider): Patient is a 30 y/o at 38.3 weeks comes in with leakage of fluid on the morning of admission. It was confirmed that her membranes were ruptured. The patient has a history of prior section and therefore was requesting a repeat C/S. Risks, benefits and alternatives were discussed. Physical Exam (per Admitting): General Appearance: WD/WN, no apparent distress Respiratory/Chest: chest non-tender, lungs clear Cardiovascular: regular rate, rhythm Abdomen/GI: normal bowel sounds, soft Neurologic/Psych: alert, oriented x 3 Skin: normal color, warm/dry, no rash Hospital Course Patient underwent a repeat C/S on day of admission without complications. Patient tolerated the surgery well and was sent to recovery with stable vital signs. Her postop recovery was uneventful. Her jenkins catheter was removed on POD # 1. Her diet and activity were advanced as tolerated. Her incision remained clean, dry and intact. She was discharged home on POD #2 with discharge instructions. Total time spent on discharge = 20 mins This includes examination of the patient, discharge planning, medication reconciliation, and communication with other providers. Discharge Instructions ACTIVITY RECOMMENDATIONS: * Gradual return to full activity over the next 2-3 weeks. * No lifting - nothing heavier than baby over the next 2-3 weeks. * Do not engage in vigorous exercise, sexual activity or sports until cleared by your physician. * Do not drive or operate any motorized equipment until cleared by your physician. * You may shower/bathe daily. BREAST CARE: If you are not breast feeding: * Wear a supportive bra 24 hours a day for one to two weeks. * Avoid stimulating your breasts and nipples as much as possible during the first few weeks after delivery. * When taking a shower, have the warm water hit your back, not breasts. * When your breasts feel full, apply ice packs. Usually three to four times a day helps ease the discomfort. * Take a mild pain medication (Tylenol/Motrin) when you are uncomfortable. If breast feeding: * Use breast milk to lubricate nipples. Lansinoh cream may be used for sore nipples. You do not need to remove cream prior to breast feeding. If using a different brand of cream, check the label for directions regarding removal of cream prior to nursing. * Wear a supportive bra. * If having problems with breasts or breast feeding, call a lead consultant or your health care provider. OVER THE COUNTER MEDICATION: * For discomfort or pain, you may use Acetaminophen (Tylenol), Ibuprofen (Advil ), or Naproxen (Aleve) following the package directions. * For constipation you may use Colace following the package directions. SPECIAL CARE INSTRUCTIONS: When you are discharged from the hospital, it is important for you to follow the instructions listed below: * During the first week at home, you should be able to care for yourself and your baby. In addition, the usual light household activities are encouraged. * Limit your activities to the way you feel. Do not try to clean the house or move furniture. Be sensible. * If you actively engage in sports and have done so up until the time of your delivery, you may resume these activities as soon as you feel able. This may take up to one month or even longer. Use good judgment. * Continue to take your vitamins for at least six weeks after the of your baby. * Your diet need not be limited unless you were on a special diet before your delivery. Breast-feeding mothers need around 2500 calories per day and at least 64-80 ounces of fluid per day (8 to 10 glasses). * You should eat foods from the four major food groups. Crash diets or fad diets are to be avoided. Eating lean meats, fresh fruits and vegetables, low-fat dairy products, high fiber foods and a regular exercise program, will help you get back to your pre- weight without putting your health at risk. * Constipation is sometimes a problem after delivery. Take a mild laxative as needed. If breast feeding, Milk of Magnesia is acceptable to use. You may use a suppository or Fleets enema if no episiotomy. * A daily shower or tub bath is suggested. Be sure to thoroughly and gently dry the perineum. * A bloody vaginal discharge will usually continue until around four weeks post . A small amount of bleeding may continue for as long as six weeks. Vaginal discharge changes from the bright red bleeding after delivery to pink then brownish and finally yellowish-pink before becoming white and disappearing. * Bleeding may increase with activity. Your first period may come in 4-8 weeks. If you are breast feeding, your period may be delayed even longer. * [place] (sex) can begin whenever both you and your partner feel comfortable and do not have any form of genital infection. It is recommended that you wait at least six weeks for internal and external healing to occur. If you have questions, please talk to your health care practitioner. A condom should be used to prevent infection and . * Foreplay, gentle intercourse and lubrication is very important the first several times to prevent pain. A water-based lubricant such as K-Y jelly or Astroglide may be used. * Tampons and/or Douching should be avoided until after six weeks check-up. * If you have RH negative blood and your baby is RH positive, you will receive RHOGAM by injection prior to discharge. The nurse will give you a card to keep with you that has the date and place that you received RHOGAM after delivery. * During your care, you had a Rubella screen done to check for the presence of rubella antibodies in your blood. If your test was negative, you will receive a Rubella vaccine prior to discharge. This vaccine may cause a fever, soreness at the injection site and flu-like symptoms. If these symptoms persist, notify your health care practitioner. is not advised for three months after a Rubella vaccine. * Verbalizes understanding of car seat law as reviewed with patient nursing. * Car Seat hand-out given and reviewed with patient by nursing. * Shaken baby information reviewed with patient by nursing. Call you doctor if: * Heavy bleeding (saturating several pads an hour) or passing clots the size of your fist. * A fever >101 degrees F (38.3 degrees C) on two occasions four hours apart and /or chills. * Unusual pain in the pelvic or vaginal areas. Pain should improve each day . * Call the doctor for any increased redness, drainage or swelling around the incision and any pain unrelieved by prescribed pain medication. * Any signs or symptoms of phlebitis (possible blood clots forming in the veins ): leg pain, warm, red or swollen area on leg. * "Baby Blues" lasting longer than two weeks. If you have any questions or concerns, call your health care practitioner at . FOLLOW-UP VISIT: * Incision check (staple removal) in 1 week. Please call doctor's office at to set up appointment. * Please call the office at to schedule a 6 week examination. It is important you keep this appointment. * It is important for you to make arrangements for either yearly or twice yearly check-ups thereafter.
== END 2016-08-11 13:45 | disposition home or self-care (01) | DRG 765 ==
LOC: C.LD 10:18 → C.OBG 16:04 → EDSTATUS 08-14 10:03
PROVIDERS: ADMIT Obstetrics & Gynecology; ATTEND Obstetrics & Gynecology
PROC: 10D00Z1 Extraction of Products of Conception, Low, Open Approach (ICD-10-PCS; principal; 2016-08-09 12:00)
DX: O34.211 Maternal care for low transverse scar from previous cesarean delivery (principal); E72.12 Methylenetetrahydrofolate reductase deficiency; O99.283 Endocrine, nutritional and metabolic diseases complicating pregnancy, third trimester; O42.02 Full-term premature rupture of membranes, onset of labor within 24 hours of rupture; Z3A.38 38 weeks gestation of pregnancy; Z37.0 Single live birth; O99.333 Smoking (tobacco) complicating pregnancy, third trimester; F17.210 Nicotine dependence, cigarettes, uncomplicated; O99.820 Streptococcus B carrier state complicating pregnancy

== ENCOUNTER → 2017-05-29 | Outpatient (CLI) | payer OTHER ==
[~2017-05-29] MED LIST changes: -CITRIC ACID/SODIUM CITRATE 15 ML UDC PO SCH; +MTR600X PO; +NCDT21 TD; +OPTIRAY 320 IV PRN
--- NOTE | 2017-05-29 14:16 | DIAGNOSTIC IMAGING REPORT ---
CT SCAN OF THE ABDOMEN WITH IV CONTRAST CLINICAL HISTORY: Generalized abdominal pain. COMPARISON STUDY: Abdominal CT dated 11/30/2013. TECHNIQUE: Following the IV administration of 93 cc of Optiray 320, CT scan of the abdomen is performed from the lung bases to the pelvic inlet. Images are reviewed in the axial, sagittal, and coronal planes. IV contrast was administered without complication. A dose lowering technique was utilized adhering to the principles of ALARA. CT DOSE: 588.45 mGy.cm FINDINGS: Lung bases: The heart is normal in size and without pericardial effusion. The lung bases are clear. Liver: The contrast-enhanced liver is normal in size, contour, and attenuation. There is no intrahepatic biliary ductal dilatation. The hepatic veins and portal veins are patent. Gallbladder: Surgically absent noting clips in the gallbladder fossa. Spleen: The spleen is mildly enlarged measuring 13.6 cm in length. Pancreas: Unremarkable. Adrenal glands: Unremarkable. Kidneys: The contrast enhanced kidneys are normal in size and without hydronephrosis. The kidneys enhance symmetrically. A 1.3 cm cyst is again seen in the lower pole of the left kidney. This contains internal calcification. Abdominal vasculature: The abdominal aorta is normal in course and caliber. Bowel: Visualized portions of the small bowel and colon are normal in course and caliber. There is mild to moderate colonic fecal retention. Peritoneum: There is no intraperitoneal free air or abdominal ascites. There is a fat-containing supraumbilical hernia with evidence of previous hernia repair. Lymphadenopathy: None. Skeletal structures: No lytic or blastic lesions are seen. Mild spondylotic change is noted in the lower lumbar spine. IMPRESSION: 1. There are no acute infectious or inflammatory findings in the abdomen. 2. There is a fat-containing supraumbilical hernia with evidence of previous ventral hernia repair. 3. Mild splenomegaly. 4. Additional findings as above. Electronically signed by: Donnell Hastings M.D. 05/29/2017 2:15 PM Dictated Date/Time: 05/29/2017 2:11 PM
== END | disposition home or self-care (01) ==
LOC: C.CTS 13:31
PROVIDERS: ATTEND Surgery
DX: R10.9 Unspecified abdominal pain (principal); K42.9 Umbilical hernia without obstruction or gangrene

== ENCOUNTER 2017-06-20 05:16 | Day surgery (SDC) | payer OTHER ==
[2017-06-09 11:28] VITALS: BMI 31.0
[~2017-06-20] VITALS: Ht 172.7 cm; Wt 94.5 kg
[~2017-06-20 05:16] MED LIST changes: -HYDR-5688 PO; +HYDR-5806 PO; +MELO7.5T5 PO; -MTR600X PO; -NCDT21 TD; -ONDA4TAB46 PO; -OPTIRAY 320 IV PRN; -PEDICHW50 PO
[2017-06-20 05:43] VITALS: BP 135/90; PULSE 81; TEMP 37.3; O2SAT 96; Ht 172.7 cm; Wt 94.5 kg
[2017-06-20] MEDS ORDERED: CLINDAMYCIN 600 MG/54 ML D5W IV SCH (06:00)
[2017-06-20] MEDS ORDERED: LACTATED RINGER'S 1000ML 1,000 ML IV SCH ×3 (06:00→09:15)
--- NOTE | 2017-06-20 06:54 | History & Physical Bridge Note ---
H&P Re-Evaluation Bridge Note: I have examined the patient, reviewed the History & Physical and in the interval since the performance of the History & Physical I have noted the following changes of clinical significance: No changes noted
[2017-06-20] MEDS ORDERED: PROPOFOL IV EMULSION 10 MG/ML 20 ML VIAL IV ONE (07:07)
[2017-06-20] MEDS ORDERED: ROCURONIUM BROMIDE 10 MG/ML 5 ML VIAL IV ONE (07:07)
[2017-06-20] MEDS ORDERED: FENTANYL CITRATE INJ 50 MCG/1 ML 2 ML VIAL ONE ×3 (07:07→08:36)
[2017-06-20] MEDS ORDERED: MIDAZOLAM HCL 1 MG/ML 2ML VIAL ONE (07:07)
[2017-06-20] MEDS ORDERED: LIDOCAINE HCL 2% 2 ML VIAL (20MG/ML) ONE (07:07)
[2017-06-20] MEDS ORDERED: BUPIVACAINE 0.5 % 5 MG/1 ML MPF 30ML VIAL ONE (07:09)
[2017-06-20] MEDS ORDERED: CEFAZOLIN SOD 1 GM VIAL ONE (07:09)
[2017-06-20] MEDS ORDERED: EpINEphrine INJ 1MG/ML AMP 1 MG/ML AMP ONE (07:10)
[2017-06-20] MEDS ORDERED: ACETAMINOPHEN 1000 MG/100 ML IV IV ONE (07:39)
[2017-06-20] MEDS ORDERED: DEXAMETHASONE SOD INJ 4 MG/ML VIAL ONE (07:52)
[2017-06-20] MEDS ORDERED: HYDROmorphone INJ 2 MG/ML SYR/VIAL ONE (07:52)
[2017-06-20] MEDS ORDERED: ONDANSETRON INJ 2 MG/ML 2 ML VIAL ONE ×2 (07:52→08:41)
--- NOTE | 2017-06-20 08:28 | [facility] Post Operative Brief Note ---
Immediate Operative Summary Operative Date Jun 20, 2017. Pre-Operative Diagnosis Recurrent venral hernia Post-Operative Diagnosis abdominal adhesions Procedure(s) Performed diagnositic laparoscopy;enterolysis Surgeon Dr. Chan Molding Engineer Surgeon(s) CARMEN Joy Estimated Blood Loss 5 cc Findings See Below no recurrent hernia; mesh perfectly placed; moderate to severe adhesions Specimens none Drains None Anesthesia Type General Complication(s) none Disposition Disposition: Recovery Room / PACU
[2017-06-20] MEDS ORDERED: LABETALOL HCL IV 5 MG/ML 20ML IV PRN (08:30)
[2017-06-20] MEDS ORDERED: EpHEDrine SULFATE INJ 50 MG/ML AMP IV PRN (08:30)
[2017-06-20] MEDS ORDERED: ATROPINE SULFATE 0.1 MG/ML 5ML SYR IV PRN (08:30)
[2017-06-20] MEDS ORDERED: MEPERIDINE HCL 25 MG/ML CARP IV PRN (08:30)
[2017-06-20] MEDS ORDERED: HYDROmorphone INJ 1 MG/ML SYR IV PRN ×2 (08:30)
[2017-06-20] MEDS ORDERED: OXYCODONE/ACETAMINOPHEN 5-325 TAB PO PRN (08:30)
[2017-06-20] MEDS ORDERED: ONDANSETRON INJ 2 MG/ML 2 ML VIAL IV PRN ×2 (08:30)
[2017-06-20] MEDS ORDERED: OXYC-106 PO (08:31)
--- NOTE | 2017-06-20 08:34 | Discharge Instructions ---
Discharge Instructions Date of Service Jun 20, 2017. Visit Reason for Visit: Recurrent Ventral Hernia Discharge Discharge Diagnosis / Problem: laparoscopy, lysis of adhesions Discharge Goals Goal(s): Decrease discomfort Activity Recommendations Activity Limitations: as noted below Lifting Limitations: no more than 10 pounds Shower/Bathe: no limitations Anesthesia . Post Anesthesia Instructions: If you have had General Anesthesia or IV Sedation: * Do not drive today. * Resume driving when surgeon permits. * Do not make important decisions or sign legal documents today. * Call surgeon for: 1. Temperature elevations greater than 101 degrees F. 2. Uncontrollable pain. 3. Excessive bleeding. 4. Persistent nausea and vomiting. 5. Medication intolerance (nausea, vomiting or rash). * For nausea and vomiting use only clear liquids such as: tea, soda, bouillon until nausea subsides, then gradually increase diet as tolerated. * If you have any concerns or questions, call your surgeon's office. If physician is unavailable and it is an emergency, call 911 or go to the nearest emergency room. . Instructions / Follow-Up Instructions / Follow-Up Dr. Chan in 2 weeks as planned, call [phone] for any questions Diet Recommendations Recommended Home Diet: no limitations Procedures Procedures Performed: diagnositic laparoscopy;enterolysis Pending Studies Studies pending at discharge: no Medical Emergencies . Who to Call and When: Medical Emergencies: If at any time you feel your situation is an emergency, please call 911 immediately. . Non-Emergent Contact Non-Emergency issues call your: Surgeon Call Non-Emergent contact if: you have a fever, temperature is above 101.5, your pain is not controlled, you have any medication questions . . "Provider Documentation" section prepared by Fito Veloz. .
[2017-06-20] MEDS: FENTANYL CITRATE INJ 50 MCG/1 ML 2 ML VIAL IV PRN ×2 (08:54→09:00)
--- NOTE | 2017-06-20 09:05 | [facility] Operative Report ---
Operative Report Operative Date Jun 20, 2017. Pre-Operative Diagnosis Recurrent ventral hernia Post-Operative Diagnosis abdominal adhesions Procedure(s) Performed diagnositic laparoscopy;enterolysis Surgeon Dr. Chan Special Day Class Teacher Surgeon(s) CARMEN Joy Estimated Blood Loss 5 cc Findings no new hernia; old hernia with good repair, no mesh issue. rather extensive adhesions at area of pain. Specimens none Anesthesia get Complication(s) None Disposition Recovery Room / PACU Description of Procedure After informed consent was obtained the patient was taken the operating room and placed in supine position. After successful intubation the right arm was tucked and the abdomen was sterilely prepped and draped in usual fashion. An upper midline incision was made with an 11 blade scalpel and carried down through the soft tissue using electrocautery. The anterior rectus fascia was opened using electrocautery and 2 #0 Vicryl stay sutures were placed. Peritoneum was elevated with hemostats and incised under direct vision using a Metzenbaum scissor. A finger sweep was performed and a 12 mm Red trocar was placed. The abdomen was insufflated to 20 mmHg. The left scope was inserted. We immediately and noted some rather extensive adhesive disease in the anterior abdominal wall. We placed 2 right midabdominal 5 mm trochars under direct vision. The adhesions were primarily to the area of her old repair. These involved some bowel as well as omentum. We used traction countertraction and electrocautery to take down these adhesions which were essentially from above the umbilicus down into the pelvis. It took quite some time to clear all of these. Once we had all the adhesions taken down we were able to better evaluate her previous hernia repair. The mesh laid perfectly flat. It was no sign of inflammation. There was no sign of recurrent hernia along the edges or new hernias elsewhere in the abdominal cavity. I felt that we would cause more harm than good by trying to remove a perfectly placed mesh with no new hernia. I suspect her pain was likely from the adhesions. We irrigated the area and looked around the remainder the abdomen with no other abnormality. At this time I chose to complete the procedure. All the instruments and trochars were removed and the abdomen was desufflated. The fascia the camera port was closed using 0 Vicryl [id number] fashion. All wounds were irrigated and closed using 4-0 Monocryl. Marcaine was injected around the incisions for postoperative analgesia and skin glue used as a dressing. The patient was awaken extubated and transferred recovery in stable condition My physician's veterinary assistant was present throughout the entire case. He helped prepped the patient helped with exposure for trocar placement helped run the camera helped with wound closure as well as dressing placement at the end of the procedure I attest to the content of the Intraoperative Record and any orders documented therein. Any exceptions are noted below.
[2017-06-20 09:30] VITALS: BP 116/55; PULSE 58; TEMP 36.7; O2SAT 92
[2017-06-20] MEDS ORDERED: NEOSTIGMINE METHYLSULFATE 5 MG/5 ML SYR ONE (09:40)
[2017-06-20] MEDS ORDERED: GLYCOPYRROLATE INJ 0.2 MG/ML VIAL ONE (09:40)
[2017-06-20 10:00] VITALS: BP 113/63; PULSE 60; O2SAT 94
== END 2017-06-20 10:28 | disposition home or self-care (01) ==
LOC: C.ACU 05:16
PROVIDERS: ATTEND Surgery
DX: K43.9 Ventral hernia without obstruction or gangrene (principal); K66.0 Peritoneal adhesions (postprocedural) (postinfection); Z90.49 Acquired absence of other specified parts of digestive tract; Z90.722 Acquired absence of ovaries, bilateral; Z98.890 Other specified postprocedural states; Z90.89 Acquired absence of other organs; Z68.31 Body mass index [BMI] 31.0-31.9, adult; E66.9 Obesity, unspecified; Z88.1 Allergy status to other antibiotic agents; Z88.0 Allergy status to penicillin; Z91.013 Allergy to seafood; Z80.49 Family history of malignant neoplasm of other genital organs; Z82.49 Family history of ischemic heart disease and other diseases of the circulatory system

== ENCOUNTER 2018-01-12 20:41 | Emergency (ER) | payer OTHER ==
[~2018-01-12] VITALS: Ht 172.7 cm; Wt 94.3 kg
[~2018-01-12 20:41] MED LIST changes: -HYDR-5806 PO
[2018-01-12 20:49] VITALS: TEMP 36.9; Ht 172.7 cm; Wt 94.3 kg
[2018-01-12] MEDS ORDERED: MEDR1INJ3 IM (21:28)
[2018-01-12] MEDS ORDERED: ACET-1256 PO (21:28)
[2018-01-12] MEDS ORDERED: ONDANSETRON INJ 2 MG/ML 2 ML VIAL IV STA (21:41)
[2018-01-12] MEDS ORDERED: MoRPHine SULFATE 4 MG/ML 1 ML CARP\\VIAL IV ONE (21:45)
[2018-01-12] MEDS ORDERED: SODIUM CHLORIDE 0.9% 1000ML 1,000 ML IV ONE (21:45)
[2018-01-12 21:47] LABS: BASO % 0.1 %; BASO ABS # 0.01 K/uL (0-0.2); EOS % 1.6 %; EOS ABS # 0.18 K/uL (0-0.5); HEMATOCRIT 43.3 % (37-47); HEMOGLOBIN 15.1 g/dL (12.0-16.0); IG# 0.04 K/uL (0.00-0.02); LYMPH % 31.8 %; LYMPH ABS # 3.61 K/uL (1.2-3.4); MEAN CELL VOLUME 87.8 fL (80-100); MEAN CORPUSCULAR HEMOGLOBIN 30.6 pg (25-34); MEAN CORPUSCULAR HGB CONC 34.9 g/dl (32-36); MEAN PLATELET VOLUME 9.1 fL (7.4-10.4); MONO % 5.1 %; MONO ABS # 0.58 K/uL (0.11-0.59); NEUT ABS # 6.94 K/uL (1.4-6.5); PLATELET COUNT 182 K/uL (130-400); RED CELL DISTRIBUTION WIDTH CV 13.1 % (11.5-14.5); WHITE BLOOD COUNT 11.36 K/uL (4.8-10.8)
[2018-01-12] MEDS ORDERED: DiphenhydrAMINE HCL 50 MG/ML VIAL IV STA (21:56)
[2018-01-12] MEDS ORDERED: OPTIRAY 320 IV PRN (22:00)
[2018-01-12 22:07] LABS: ALBUMIN 3.9 gm/dl (3.4-5.0); CALCIUM 9.1 mg/dl (8.5-10.1); CREATININE 0.69 mg/dl (0.60-1.20); POTASSIUM 3.7 mmol/L (3.5-5.1)
[2018-01-13] MEDS ORDERED: ONDANSETRON HOME PACK 4MG OD TAB PO ONE (01:15)
[2018-01-13] MEDS ORDERED: NORCO 5/325MG HOME PACK PO ONE (01:15)
[2018-01-13 01:31] VITALS: BP 120/70; PULSE 69; O2SAT 96
--- NOTE | 2018-01-13 07:24 | DIAGNOSTIC IMAGING REPORT ---
ABD/PELVIS IV AND ORAL CONT CLINICAL HISTORY: 32 years-old Female presenting with rlq abd pain. hx past surgeries/sbo. Still with appdx, history of 2 C-sections, hernia mesh repair and revision. TECHNIQUE: Multidetector CT of the abdomen and pelvis was performed after the administration of oral and intravenous contrast. IV contrast: 92 mL of Optiray 320. A dose lowering technique was used consistent with the principles of ALARA (as low as reasonably achievable). COMPARISON: 05/29/2017. CT DOSE (mGy.cm): The estimated cumulative dose is 811.50 mGy.cm. FINDINGS: [employer] topogram: Cholecystectomy clips noted. Lung bases: Minimal basilar opacities, likely atelectasis. Normal heart size. No pericardial or pleural effusion. Liver: Normal morphology. No liver lesion. Patent hepatic vasculature. Biliary: Mild biliary ductal prominence likely a reservoir effect in the post cholecystectomy state. Gallbladder surgically absent. Pancreas: Normal. Spleen: Normal. Adrenal glands: Normal. Kidneys and ureters: Nonobstructing 4 mm calcification in the lower pole the left kidney either represents a nonobstructing calculus in the calyceal diverticulum versus renal milk of calcium cyst. No hydronephrosis. Subcentimeter cysts noted at the lower pole the right kidney. Ureters normal. Bladder: Incompletely evaluated secondary to underdistention. Pelvic organs: Uterus and left ovary normal. Right ovary not well visualized. Bowel: Normal appendix. No bowel obstruction. Peritoneal cavity: No free fluid or intraperitoneal gas. Lymph nodes: No enlarged lymph nodes in the abdomen or pelvis. Vasculature: Aorta and IVC patent and normal in caliber. Abdominal wall: Postsurgical changes of the ventral abdominal wall with small fat-containing hernias. Prosthetic mesh may be in place in the periumbilical region. Musculoskeletal: Normal. IMPRESSION: 1. No acute intra-abdominal pathology. No appendicitis. 2. No bowel obstruction or free air. 3. Small fat-containing ventral hernias. Electronically signed by: Prateek Taylor M.D. 01/13/2018 7:22 AM Dictated Date/Time: 01/13/2018 6:54 AM
--- NOTE | 2018-01-13 21:58 | EMERGENCY ROOM VISIT NOTE ---
History First contact with patient: 21:30 Chief Complaint: ABDOMINAL PAIN Stated Complaint: PAIN IN [place] AREA;FEVER Nursing Triage Summary: pt reports right lower abdominal pain x2 days. states pain has increased today. pt associates nausea and diarrhea. also reports a decreased urinary output, states "i can't pee." pt states "i have no appetite." reprots hx of gall bladder and right ovary removed. pt alert and orietned x4, breathing WNL, respirations regular and unlabored. pt reports pain in right lower abdominal quad, bowel sounds WNL, abd tender on right upper and lower quad. History of Present Illness The patient is a 32 year old female who presents to the Emergency Room with complaints of right lower quadrant abdominal pain for the past 2 days. The patient reports some nausea with diarrhea. She has not been eating or drinking well and has not been urinating much today. Patient does not report fever or chills. No chest pain, chest tightness, or shortness of breath. Her discomfort is not improved or worsened by food or activity. She has not taken anything [id number] for pain roll, and currently rates the pain a dull 5/ 10. The patient has had multiple abdominal surgeries including cholecystectomy and section. The patient does not have recent travel history. No injury to otherwise explain her symptoms. Review of Systems More than 10 systems were reviewed and otherwise negative with the exception of history of present illness. Past Medical/Surgical History Medical Problems: (1) section (2) Cholecystectomy (3) SROM (spontaneous rupture of membranes) Surgical Problems: (1) Previous section complicating Family History FH: cancer Social History Smoking Status: Current Every Day Smoker Alcohol Use: none Drug Use: none Marital Status: single Housing Status: lives with family Current/Historical Medications Scheduled Medroxyprogesterone Acetate (C (Depo-Provera Contraceptiv), 150 MG IM Q3MO Scheduled PRN Acetaminophen (Tylenol), 1,000 MG PO Q6H PRN for Pain or Fever Physical Exam Vital Signs Date Time Temp Pulse Resp B/P (MAP) Pulse Ox O2 Delivery O2 Flow Rate FiO2 01/13/18 01:31 69 18 120/70 96 01/13/18 00:28 69 18 113/63 98 Room Air 01/12/18 23:02 56 01/12/18 22:51 65 18 130/70 100 Room Air 01/12/18 21:51 59 18 146/76 98 Room Air 01/12/18 20:49 36.9 79 18 153/88 98 Room Air Physical Exam VITALS: Vitals are noted on the nurse's note and reviewed by myself. Vital signs stable. GENERAL: Well-developed, well-nourished, white female, who is in no acute distress and resting comfortably. Patient is cooperative with the examination. HEAD: Normocephalic atraumatic. NECK: Supple without nuchal rigidity. No lymphadenopathy. No thyromegaly. Cervical spine is nontender. HEART: Regular rate and rhythm without murmurs gallops or rubs. LUNGS: Clear to auscultation bilaterally without wheezes, rales or rhonchi. No retractions or accessory muscle use. ABDOMEN: Positive normal bowel sounds x 4. Soft, nontender, without masses or organomegaly. No guarding or rebound tenderness. MUSCULOSKELETAL: No muscle atrophy, erythema, or edema noted. Full range of motion in all extremities. No tenderness to palpation. NEURO: Patient was alert and oriented to person place and time. CN II through XII grossly intact. Medical Decision & Procedures ER Provider Diagnostic Interpretation: ABD/PELVIS IV AND ORAL CONT CLINICAL HISTORY: 32 years-old Female presenting with rlq abd pain. hx past surgeries/sbo. Still with appdx, history of 2 C-sections, hernia mesh repair and revision. TECHNIQUE: Multidetector CT of the abdomen and pelvis was performed after the administration of oral and intravenous contrast. IV contrast: 92 mL of Optiray 320. A dose lowering technique was used consistent with the principles of ALARA (as low as reasonably achievable). COMPARISON: 05/29/2017. CT DOSE (mGy.cm): The estimated cumulative dose is 811.50 mGy.cm. FINDINGS: [employer] topogram: Cholecystectomy clips noted. Lung bases: Minimal basilar opacities, likely atelectasis. Normal heart size. No pericardial or pleural effusion. Liver: Normal morphology. No liver lesion. Patent hepatic vasculature. Biliary: Mild biliary ductal prominence likely a reservoir effect in the post cholecystectomy state. Gallbladder surgically absent. Pancreas: Normal. Spleen: Normal. Adrenal glands: Normal. Kidneys and ureters: Nonobstructing 4 mm calcification in the lower pole the left kidney either represents a nonobstructing calculus in the calyceal diverticulum versus renal milk of calcium cyst. No hydronephrosis. Subcentimeter cysts noted at the lower pole the right kidney. Ureters normal. Bladder: Incompletely evaluated secondary to underdistention. Pelvic organs: Uterus and left ovary normal. Right ovary not well visualized. Bowel: Normal appendix. No bowel obstruction. Peritoneal cavity: No free fluid or intraperitoneal gas. Lymph nodes: No enlarged lymph nodes in the abdomen or pelvis. Vasculature: Aorta and IVC patent and normal in caliber. Abdominal wall: Postsurgical changes of the ventral abdominal wall with small fat-containing hernias. Prosthetic mesh may be in place in the periumbilical region. Musculoskeletal: Normal. IMPRESSION: 1. No acute intra-abdominal pathology. No appendicitis. 2. No bowel obstruction or free air. 3. Small fat-containing ventral hernias. Laboratory Results 01/12/18 21:21 Red Blood Count 4.93, Mean Corpuscular Volume 87.8, Mean Corpuscular Hemoglobin 30.6, Mean Corpuscular Hemoglobin Concent 34.9, Mean Platelet Volume 9.1, Neutrophils (%) (Auto) 61.0, Lymphocytes (%) (Auto) 31.8, Monocytes (%) (Auto) 5.1, Eosinophils (%) (Auto) 1.6, Basophils (%) (Auto) 0.1, Neutrophils # (Auto) 6.94, Lymphocytes # (Auto) 3.61, Monocytes # (Auto) 0.58, Eosinophils # (Auto) 0.18, Basophils # (Auto) 0.01 01/12/18 21:21 Test 01/12/18 21:21 01/12/18 22:31 White Blood Count 11.36 K/uL (4.8-10.8) Red Blood Count 4.93 M/uL (4.2-5.4) Hemoglobin 15.1 g/dL (12.0-16.0) Hematocrit 43.3 % (37-47) Mean Corpuscular Volume 87.8 fL (80-100) Mean Corpuscular Hemoglobin 30.6 pg (25-34) Mean Corpuscular Hemoglobin Concent 34.9 g/dl (32-36) Platelet Count 182 K/uL (130-400) Mean Platelet Volume 9.1 fL (7.4-10.4) Neutrophils (%) (Auto) 61.0 % Lymphocytes (%) (Auto) 31.8 % Monocytes (%) (Auto) 5.1 % Eosinophils (%) (Auto) 1.6 % Basophils (%) (Auto) 0.1 % Neutrophils # (Auto) 6.94 K/uL (1.4-6.5) Lymphocytes # (Auto) 3.61 K/uL (1.2-3.4) Monocytes # (Auto) 0.58 K/uL (0.11-0.59) Eosinophils # (Auto) 0.18 K/uL (0-0.5) Basophils # (Auto) 0.01 K/uL (0-0.2) RDW Standard Deviation 42.0 fL (36.4-46.3) RDW Coefficient of Variation 13.1 % (11.5-14.5) Immature Granulocyte % (Auto) 0.4 % Immature Granulocyte # (Auto) 0.04 K/uL (0.00-0.02) Anion Gap 8.0 mmol/L (3-11) Est Creatinine Clear Calc Drug Dose 139.2 ml/min Estimated GFR () 132.6 Estimated GFR (Non- 114.4 BUN/Creatinine Ratio 10.0 (10-20) Calcium Level 9.1 mg/dl (8.5-10.1) Total Bilirubin 0.4 mg/dl (0.2-1) Aspartate Amino Transf (AST/SGOT) 12 U/L (15-37) Alanine Aminotransferase (ALT/SGPT) 28 U/L (12-78) Alkaline Phosphatase 92 U/L (45-117) Total Protein 7.0 gm/dl (6.4-8.2) Albumin 3.9 gm/dl (3.4-5.0) Globulin 3.1 gm/dl (2.5-4.0) Albumin/Globulin Ratio 1.2 (0.9-2) Lipase 82 U/L (73-393) Urine Color YELLOW Urine Appearance CLEAR (CLEAR) Urine pH 7.0 (4.5-7.5) Urine Specific [place] 1.004 (1.000-1.030) Urine Protein NEG (NEG) Urine Glucose (UA) NEG (NEG) Urine Ketones NEG (NEG) Urine Occult Blood NEG (NEG) Urine Nitrite NEG (NEG) Urine Bilirubin NEG (NEG) Urine Urobilinogen NEG (NEG) Urine Leukocyte Esterase NEG (NEG) Medications Administered Medications (Trade) Dose Ordered Sig/[place] Route Start Time Stop Time Status Last Admin Dose Admin Sodium Chloride 1,000 ml @ 999 mls/hr Q1H1M ONCE IV 01/12/18 21:45 01/12/18 22:45 DC 01/12/18 21:50 999 MLS/HR Ondansetron HCl (Zofran Inj) 4 mg NOW STAT IV 01/12/18 21:41 01/12/18 21:43 DC 01/12/18 21:51 4 MG Morphine Sulfate (MoRPHine SULFATE INJ) 4 mg NOW ONCE IV 01/12/18 21:45 01/12/18 21:46 DC 01/12/18 21:52 4 MG Diphenhydramine HCl (Benadryl Inj) 25 mg NOW STAT IV 01/12/18 21:56 01/12/18 21:57 DC 01/12/18 21:59 25 MG Acetaminophen/ Hydrocodone Bitart ([place] 5/325mg Home Pack) 1 homepack UD ONCE PO 01/13/18 01:15 01/13/18 01:16 DC 01/13/18 01:24 1 HOMEPACK Ondansetron HCl (ZOFRAN ODT 4MG Home Pack) 1 homepack UD ONCE PO 01/13/18 01:15 01/13/18 01:16 DC 01/13/18 01:25 1 HOMEPACK ED Course Physical exam and history were performed. Nursing notes, EMR, and Medication List were personally reviewed. Patient appears to have some lower right-sided abdominal discomfort for the past 2 days. She defers pelvic examination. The patient does not have significant tenderness on exam. IV access was established and labs were obtained. She was hydrated and medicated as above. Out of concern for the possibility of appendicitis I did elect to perform a CT scan with IV and oral contrast. The patient's blood work is as above and was reviewed. She has a very minimally elevated white blood cell count. He does not have a significant anemia or gross electrolyte imbalance. Lipase and transaminases are not diagnostic. Urine is negative for and without obvious signs of infection. The patient CT scan is as above and does not show acute process to explain the patient's symptoms. On repeat evaluation the patient continues to be very comfortable in her ER bed. Her abdomen remains soft and not consistent with an acute surgical abdomen. Overall the patient appears well for discharge home. I suspect her symptoms are likely viral or foodborne in nature. I will provide her a short course of Zofran for symptomatic relief. She is to follow with her primary care physician in the next few days. She was otherwise invited back to the ER with any new, worsening, or concerning symptoms. The chart was completed utilizing [employer] Speech Voice Recognition Software. Grammatical errors, random word insertions, pronoun errors, and incomplete sentences are an occasional consequence of this system due to software limitations, ambient noise, and hardware issues. Any formal questions or concerns about the content, text, or information contained within the body of this dictation should be directly addressed to the provider for clarification. . Medical Decision Differential diagnosis: Etiologies such as appendicitis, diverticulitis, PUD, biliary pathology, UTI, pancreatitis, obstruction, mesenteric ischemia, aortic pathology, infections, inflammatory bowel disease, renal colic, as well as others were entertained. Impression Primary Impression: Abdominal pain Departure Information Dispostion Home / Self-Care Condition GOOD Forms Call Back Authorization, HOME CARE DOCUMENTATION FORM, IMPORTANT VISIT INFORMATION Patient Instructions My [facility] Additional Instructions You were seen and evaluated today on an emergency basis only. This is not a substitute for, or an effort to provide, complete comprehensive medical care. It is not possible to recognize and treat all injuries or illnesses in a single emergency department visit. For this reason it is recommended that you followup with your primary care physician in the next 2-3 days for recheck of your condition. Drink plenty of fluids and remain well-hydrated. [place] (hydrocodone/acetaminophen) 5/325 mg (homepack): Take ONE pill by mouth every 6 hours as needed for worsening breakthrough pain. Do not drink or drive on [place]. This medication will likely make you tired. Do not take [place] and Tylenol at the same time as both contain acetaminophen. [place] may cause constipation. You may wish to take an [id number] stool softener like Colace if this occurs. Zofran 4 mg ODT (homepack): Dissolve 1 tablet every 6 hrs as needed for nausea. You are welcome to return to the emergency department anytime with new, worsening, or concerning symptoms.
== END 2018-01-13 01:31 | disposition home or self-care (01) ==
LOC: C.EDB 21:41
DX: R10.31 Right lower quadrant pain (principal); Z90.49 Acquired absence of other specified parts of digestive tract; F17.200 Nicotine dependence, unspecified, uncomplicated; Z79.3 Long term (current) use of hormonal contraceptives

== ENCOUNTER 2023-12-22 05:53 | Observation (INO) ==
--- NOTE | 2023-12-22 06:39 | Emergency Department Note ---
Impression & Plan Left ureteral calculus, Abdominal pain, Nausea & vomiting ED Provider Note NAME: OPAL HUNT AGE: 38 SEX: F : 1985 ARRIVES VIA: Walk-In INFORMANT: Patient, triage note ED PROVIDER(S): Gilbert Hatfield MD CHIEF COMPLAINT: Flank pain MEDICAL DECISION MAKING: Patient presents due to concern for left-sided abdominal and flank pain. IV was established and blood work was obtained along with urinalysis and CT abdomen pelvis. Patient was ordered IV morphine. The patient is unable to take Toradol due to concerns for an allergy but did try to attempt ibuprofen this morning although patient may have not This down as she did have vomiting soon thereafter. Patient's blood work shows a white count of 13 with a normal H&H and platelet count. Kidney function with a creatinine 1.2. LFTs unremarkable beta-hCG negative urinalysis positive for blood may indicate kidney stone. CT then pelvis that showed left-sided UVJ stone. The patient was treated with IV fentanyl and additional IV fluids and nausea medication. The patient was still having pain and was given additional nausea medication and IV Dilaudid. The patient was still having pain. Given the patient's intractable renal colic I did speak to the on-call hospital service Dino Medellin PA-C and under Dr. Tripp. I also did message on-call urologist Dr. Broderick to make him aware the patient was being admitted. Discussion w/ other healthcare providers: Dino Medellin PA-C and Dr. Tripp inpatient medicine Dr. Broderick urology Prior /Outside records reviewed: Patient did have a stress echocardiogram completed and February 10, 2023. Nondiagnostic due to inability achieve target heart rate mild dynamic LVOT borderline ZAYNAB. Differential diagnosis: Renal colic, UTI, pyelonephritis, appendicitis, diverticulitis, strain, sprain, fracture among others were considered. Diagnostics, as interpreted by me: ECG: None Cardiac monitoring: An order was placed for continuous cardiac monitoring. The monitor shows a rate of 78 with sinus rhythm. Patient was placed on pulse oximetry Medical decision rules: None Imaging studies: I informally interpreted the patient's CT abdomen pelvis that showed a left- sided UVJ stone with formal report to follow. HPI: Patient presents due to concern for left-sided flank/back as well as abdominal pain. The patient states that it radiates from her left side towards her lower abdomen. The patient does complain of diffuse pain but seems to be more prominent left side. Patient states that this occurred at work around 530 this morning. The patient did take ibuprofen 800 but does not think that she kept it down. Patient denies any chest pains or shortness of breath. No fevers or chills. Patient denies any dysuria or prior hematuria. The patient denies any history of kidney stones. Patient denies any falls or trauma no heavy lifting twisting or turning and no lower extremity weakness or numbness. PAST MEDICAL HISTORY: See Below PAST SURGICAL HISTORY: See Below SOCIAL HISTORY: See Below HOME MEDICATIONS: See Below ALLERGIES: See Below VITALS: See Below PHYSICAL EXAMINATION: GENERAL: Uncomfortable but nontoxic in appearance. EYE EXAM: Normal conjunctiva. PERRL, no anisocoria and EOM's grossly intact w/o pain. OROPHARYNX: Moist mucus membranes, grossly normal dentition. NECK: Trachea midline, no stridor. Supple, no nuchal rigidity, no adenopathy, non-tender. No signs of meningismus. FROM of the neck with good chin to chest and neck extension. LUNGS: Clear to auscultation. Normal chest wall mechanics. HEART: NSR, no MRG. ABDOMEN: Abdomen soft, mild diffuse pain most prominent in the left abdomen, not peritonitic, no masses, no rebound or guarding. BACK: No CVA TTP. SKIN: No rashes and no bruising. UPPER EXTREMITIES: Upper extremities are grossly normal. LOWER EXTREMITIES: Grossly normal, no edema. No saddle anesthesia. NEURO EXAM: A&O x3, cranial nerves II-XII grossly intact, normal speech, moves all 4 extremities. Past Med/Surg History Problem List (Updated 12/22/23 @ 12:16 by Gilbert Hatfield MD) Nausea & vomiting (Acute) Abdominal pain (Acute) Intractable pain Chronic back pain KARO (acute kidney injury) Hydroureter, left Left ureteral calculus (Acute) Congenital heart disease Heart palpitations History of tonsillectomy and adenoidectomy Delayed union fractures Foot fracture, left Abdominal pain (Acute) Left knee pain (Acute) Low back pain (Acute) Previous section complicating Right flank pain (Acute) Urinary tract infection (Acute) Urinary tract infection (Acute) Medical History Migraine Heart disease Surgical History Hx of hernia repair Hx of oophorectomy Hx of section History of open heart surgery Family History Other Cancer Diabetes Heart disease Pulmonary embolism Social History Smoking Status: Current every day smoker Tobacco Type: Cigarettes Hx Alcohol Use: No Preferred Language: Wolof marital status: Single current occupational status: employed current occupation: Works @ [employer] [place] Feels Safe at Home: Yes Allergies Allergies Allergy/AdvReac Type Severity Reaction Status Date / Time cephalexin Allergy Intermediate face Verified 01/09/23 09:13 swelling Cipro Allergy Intermediate face Verified 06/20/17 05:38 swelling ciprofloxacin Allergy Intermediate face Verified 01/09/23 09:13 swelling shellfish derived Allergy Intermediate "felt like Verified 01/09/23 09:13 I was on fire" chlorpromazine Allergy Mild HIVES Verified 01/09/23 09:13 ketorolac Allergy Mild HIVES Verified 01/09/23 09:13 Penicillins Allergy Mild HIVES- HAS Verified 01/09/23 09:[address] JASON Home Meds Home Medications Medication Instructions Recorded Confirmed amitriptyline 25 mg tablet 75 mg PO DAILY 01/25/20 12/22/23 gabapentin 600 mg tablet 600 mg PO QID 01/25/20 12/22/23 (Neurontin) hydrocodone 7.5 mg-acetaminophen 1 tab PO Q8H PRN Pain 01/25/20 12/22/23 325 mg tablet sumatriptan succinate 50 mg tablet 50 mg PO DIRECTED PRN Migraine 12/22/23 12/22/23 Headache tramadol 50 mg tablet 50 mg PO HS 12/22/23 12/22/23 Results & Data (ED) Vital Signs Vital Signs - 24 hr 12/22/23 06:02 12/22/23 06:27 12/22/23 09:00 Temperature 36.9 C Temperature Source Temporal Artery Scan Pulse Rate 77 74 Pulse Rate [Apical] 65 Respiratory Rate 20 18 Respiratory Effort / Characteristics Non-Labored Spontaneous Respiratory Depth Normal Blood Pressure 152/92 H Blood Pressure [Left Arm] 137/84 Blood Pressure Mean 112 Blood Pressure Mean [Left Arm] 101 Blood Pressure Position [Left Arm] Semi-fowlers Pulse Oximetry 98 97 Oxygen Delivery Method Room Air Room Air Sepsis Recent Fever Within 48 Hours No Sepsis New/Unexplained Change in Mental Status No Sepsis Action Taken by Nursing No Action Required 12/22/23 10:49 Temperature Temperature Source Pulse Rate 63 Pulse Rate [Apical] Respiratory Rate Respiratory Effort / Characteristics Respiratory Depth Blood Pressure Blood Pressure [Left Arm] Blood Pressure Mean Blood Pressure Mean [Left Arm] Blood Pressure Position [Left Arm] Pulse Oximetry Oxygen Delivery Method Sepsis Recent Fever Within 48 Hours Sepsis New/Unexplained Change in Mental Status Sepsis Action Taken by [facility] Medications Current Medication List: was personally reviewed by me Laboratory Data Attestation: I reviewed the patient's lab results. 12/22/23 06:15 12/22/23 07:50 Lab Results 12/22/23 12/22/23 12/22/23 Range/Units 06:15 07:17 07:50 WBC 13.50 H (4.8-10.8) K/ul RBC 5.06 (4.20-5.40) M/uL Hgb 15.4 (12.0-16.0) g/dl Hct 45.1 (37.0-47.0) % MCV 89.1 (80.0-100.0) fL MCH 30.4 (25.0-34.0) pg MCHC 34.1 (32.0-36.0) g/dL RDW Std Deviation 42.0 (36.4-46.3) fL RDW Coeff of Zoran 12.9 (11.5-14.5) % Plt Count 218 (130-400) K/uL MPV 9.2 L (9.4-12.4) fL Immature Gran % (Auto) 0.4 % Neut % (Auto) 69.8 % Lymph % (Auto) 22.3 % [place] % (Auto) 6.3 % Eos % (Auto) 1.0 % Baso % (Auto) 0.2 % Neut # (Auto) 9.43 H (1.40-6.50) K/uL Lymph # (Auto) 3.01 (1.20-3.40) K/uL [place] # (Auto) 0.85 H (0.11-0.59) K/uL Eos # (Auto) 0.13 (0.00-0.50) K/uL Baso # (Auto) 0.03 (0.00-0.20) K/uL Immature Gran # (Auto) 0.05 (0.01-0.20) K/uL Sodium 138 (136-145) mmol/L Potassium TNP 4.2 Chloride 105 (98-107) mmol/L Carbon Dioxide 25 (21-32) mmol/L Anion Gap 8 (3-11) BUN 19 (6-23) mg/dl Creatinine 1.25 H (0.6-1.2) mg/dl Est Cr Clr Drug Dosing 70.5 ml/min Est GFR ( Amer) 62.8 ml/min Est GFR (Non-Af Amer) 54.1 ml/min BUN/Creatinine Ratio 15.2 (10-20) Glucose 115 H (70-99(Fasting)) mg/dl Calcium 9.8 (8.6-10.3) mg/dl Magnesium 2.3 (1.7-2.4) mg/dl Total Bilirubin 0.3 (0.2-1.0) mg/dl AST TNP 17 ALT 22 (7-52) U/L Alkaline Phosphatase 92 (34-104) U/L Total Protein 7.5 (6.0-8.3) gm/dl Albumin 4.8 (3.4-5.0) gm/dl Globulin 2.7 (2.5-4.0) gm/dl Albumin/Globulin Ratio 1.8 (0.9-2) Lipase 21 (11-82) U/L HCG, Qual Negative (Negative) Urine Color Yellow Urine Appearance Clear (Clear) Urine pH 6.5 (4.5-7.5) Ur Specific [place] 1.017 (1.000-1.030) Urine Protein Negative (Negative) Urine Glucose (UA) Negative (Negative) Urine Ketones Negative (Negative) Urine Blood Trace H (Negative) Urine Nitrite Negative (Negative) Urine Bilirubin Negative (Negative) Urine Urobilinogen Negative (Negative) Ur Leukocyte Esterase Negative (Negative) Urine WBC (Auto) 0-5 (0-5) /hpf Urine RBC (Auto) 3-5 H (0-2) /hpf U Hyaline Cast (Auto) 0-2 (0-2) /lpf U Epithel Cells (Auto) 3-5 H (0-2) /hpf Urine Bacteria (Auto) None Seen (None Seen) Administered Medications Discontinued Medications Diphenhydramine HCl (Diphenhydramine 50 Mg/Ml Vial) 12.5 mg IV ONE ONE Stop: 12/22/23 06:57 Last Admin: 12/22/23 07:11 Dose: 12.5 mg Documented By: TANIA Fentanyl Citrate (Fentanyl Citrate Pf 100 Mcg/2 Ml Vial) 75 mcg IV NOW STA Stop: 12/22/23 08:40 Last Admin: 12/22/23 08:55 Dose: 75 mcg Documented By: TANIA Hydromorphone HCl (Hydromorphone Inj 0.5 Mg/0.5 Ml Syr) 0.5 mg IV NOW STA Stop: 12/22/23 09:53 Last Admin: 12/22/23 10:04 Dose: 0.5 mg Documented By: TANIA Acetaminophen (Ofirmev) 1,000 mg in 100 mls @ 400 mls/hr IV NOW STA Stop: 12/22/23 07:07 Last Infusion: 12/22/23 08:24 Dose: Infused Documented By: [facility] Admin: 12/22/23 07:12 Dose: 400 mls/hr Documented By: TANIA Sodium Chloride (Nss) 1,000 mls @ 999 mls/hr IV .Q1H1M ONE Stop: 12/22/23 08:45 Last Infusion: 12/22/23 10:00 Dose: Infused Documented By: [facility] Admin: 12/22/23 08:55 Dose: 999 mls/hr Documented By: TANIA Sodium Chloride (Nss) 1,000 mls @ 999 mls/hr IV .Q1H1M ONE Stop: 12/22/23 10:52 Last Infusion: 12/22/23 11:47 Dose: Infused Documented By: [facility] Admin: 12/22/23 10:04 Dose: 999 mls/hr Documented By: TANIA Ioversol (Optiray 320 100ml) 94 ml IV ONCE ONE Stop: 12/22/23 07:52 Last Admin: 12/22/23 07:51 Dose: 94 ml Documented By: RADHA Metoclopramide HCl (Metoclopramide Hcl Inj 5 Mg/Ml 2 Ml Vial) 10 mg IV NOW STA Stop: 12/22/23 09:53 Last Admin: 12/22/23 10:04 Dose: 10 mg Documented By: TANIA Morphine Sulfate (Morphine Sulfate 4 Mg/Ml 1 Ml Carp\\Vial) 4 mg IV NOW STA Stop: 12/22/23 06:57 Last Admin: 12/22/23 07:11 Dose: 4 mg Documented By: TANIA Ondansetron HCl (Ondansetron Inj 2 Mg/Ml 2 Ml Vial) 4 mg IV NOW STA Stop: 12/22/23 06:59 Last Admin: 12/22/23 07:09 Dose: 4 mg Documented By: TANIA Ondansetron HCl (Ondansetron Inj 2 Mg/Ml 2 Ml Vial) 4 mg IV NOW STA Stop: 12/22/23 08:40 Last Admin: 12/22/23 08:55 Dose: 4 mg Documented By: TANIA Tamsulosin HCl (Tamsulosin Hcl 0.4 Mg Cap) 0.4 mg PO NOW ONE Stop: 12/22/23 11:18 Last Admin: 12/22/23 11:39 Dose: 0.4 mg Documented By: KV Imaging Data Radiologist's Impression: Abdomen/Pelvis CT 12/22/23 06:[address] WITH IV CONTRAST CT DOSE: 1440.54 mGy.cm HISTORY: L sided flank pain TECHNIQUE: Multiaxial CT images of the abdomen and pelvis were performed following the use of intravenous contrast. A dose lowering technique was utilized adhering to the principles of ALARA. COMPARISON STUDY: Abdomen and pelvis CT 01/13/2018. FINDINGS: The lung bases are clear. No pneumoperitoneum. No pneumatosis. No acute fractures. Small fat-containing midline epigastric hernia. There is also a small fat-containing umbilical hernia. These are similar to the prior study. There is suggestion of overlying mesh repair at the umbilical hernia. Prior cholecystectomy. No hepatic or splenic masses. The adrenal glands, pancreas, and right kidney are unremarkable. The main portal vein is patent. Normal caliber abdominal aorta. No retroperitoneal or pelvic lymphadenopathy. There is a 5 mm obstructing stone within the left ureterovesical junction on image 331. This results in mild left hydroureteronephrosis. Delayed left nephrogram likely due to the obstruction. There is moderate left perinephric edema. This is likely reactive to the obstruction. Forniceal rupture also remains in the differential diagnosis. Trace pelvic free fluid. This is likely physiologic. The uterus is unremarkable. Multiple small cysts noted within the left ovary. No bladder wall thickening. No bowel wall thickening or obstruction. Normal appendix. IMPRESSION: 1. A 5 mm obstructing stone within the left ureterovesical junction resulting in mild left hydroureteronephrosis. 2. Left perinephric fluid which is likely reactive to the obstruction. Forniceal rupture remains in the differential diagnosis. 3. No bowel wall thickening or obstruction. 4. Additional findings as described above. ACT 112: Negative or not required by law. Electronically signed by: Ronnie Terrazas M.D. 12/22/2023 9:07 AM Discharge Plan Visit Data Chief Complaint: Abdominal Pain Stated Complaint: back pain ED Provider: Gilbert Hatfield Discharge Problem: Left ureteral calculus, Abdominal pain, Nausea & vomiting Patient Disposition: Admitted As Inpatient Discharge Instructions Interventions: ED Discharge Assessment Last Done: 12/22/23 11:48 Discharge Problem: Abdominal pain Qualifiers: Abdominal location: left lower quadrant Qualified Code(s): R10.32 - Left lower quadrant pain Nausea & vomiting Qualifiers: Vomiting type: unspecified Qualified Code(s): R11.2 - Nausea with vomiting, unspecified
[2023-12-22 06:46] LABS: Basophils # (auto) 0.03 K/uL (0.00-0.20); Basophils % (auto) 0.2 %; Eosinophils # (auto) 0.13 K/uL (0.00-0.50); Hematocrit (blood only) 45.1 % (37.0-47.0); Hemoglobin 15.4 g/dl (12.0-16.0); Immature Granulocytes # (auto) 0.05 K/uL (0.01-0.20); Immature Granulocytes % (auto) 0.4 %; Lymphocytes # (auto) 3.01 K/uL (1.20-3.40); Lymphocytes % (auto) 22.3 %; Mean Corpuscular Hemoglobin 30.4 pg (25.0-34.0); Mean Corpuscular Hgb Conc 34.1 g/dL (32.0-36.0); Mean Corpuscular Volume 89.1 fL (80.0-100.0); Mean Platelet Volume 9.2 fL (9.4-12.4); Monocytes # (auto) 0.85 K/uL (0.11-0.59); Monocytes % (auto) 6.3 %; Neutrophils # (auto) 9.43 K/uL (1.40-6.50); Neutrophils % (auto) 69.8 %; Platelet Count 218 K/uL (130-400); RDW Coefficient of Variation 12.9 % (11.5-14.5); Red Blood Count 5.06 M/uL (4.20-5.40)
[2023-12-22] MEDS ORDERED: ONDANSETRON INJ 2 MG/ML 2 ML VIAL IV PRN ×3 (06:53→15:50)
[2023-12-22 06:55] LABS: Pregnancy Test, Serum Negative (Negative)
--- NOTE | 2023-12-22 07:08 | Emergency Department Note ---
ED Visit Note Patient is a 38yo female presenting to the ED for abdominal and flank pain starting at 1am while at work, endorses abrupt onset of lower back pain mostly on the left, moving to the left side and abdomen over the first hour of pain. States pain worsens with any movement, better lying down with back elevated and with knees bent. Denies eating anything abnormal in past day. States she vomited 4 times since pain started, clear with no blood. Threw up a small volume once while being examined, clear and nonbloody. Denies any trauma or chance of being . States she had one normal bowel movement since the pain started, and has been urinating with no abnormalities. Denies history of kidney stones. Took 800mg ibuprofen but denies any improvement of main. SurgHx: 2 c-sections - 2009, 2017 - hernia repair - 2016, 2018 .
[2023-12-22] MEDS: ONDANSETRON INJ 2 MG/ML 2 ML VIAL IV STA ×2 (07:09→08:55)
[2023-12-22] MEDS: diphenhydrAMINE 50 MG/ML VIAL IV ONE (07:11)
[2023-12-22] MEDS: MoRPHine SULFATE 4 MG/ML 1 ML CARP\\VIAL IV STA (07:11)
[2023-12-22] MEDS: ACETAMINOPHEN 1,000 MG/100 ML VIAL IV STA (07:12)
[2023-12-22 07:35] LABS: Alanine Aminotransferase 22 U/L (7-52); Albumin Globulin Ratio 1.8 (0.9-2); Albumin Level 4.8 gm/dl (3.4-5.0); Alkaline Phosphatase 92 U/L (34-104); Anion Gap 8 (3-11); BUN Creatinine Ratio 15.2 (10-20); Bilirubin,Total 0.3 mg/dl (0.2-1.0); Blood Urea Nitrogen 19 mg/dl (6-23); Calcium 9.8 mg/dl (8.6-10.3); Carbon Dioxide 25 mmol/L (21-32); Chloride 105 mmol/L (98-107); Creatinine Clr Calc Pharmacy 70.5 ml/min; Est GFR (African American) 62.8 ml/min; Est GFR (Non-African American) 54.1 ml/min; Globulin 2.7 gm/dl (2.5-4.0); Glucose 115 mg/dl (70-99(Fasting)); Lipase 21 U/L (11-82); Magnesium 2.3 mg/dl (1.7-2.4); Sodium 138 mmol/L (136-145); Total Protein 7.5 gm/dl (6.0-8.3)
[2023-12-22 07:36] LABS: Appearance Urine Clear (Clear); Bacteria Urine Automated None Seen (None Seen); Bilirubin Urine Negative (Negative); Blood Urine Trace (Negative); Cast Urine Automated 0-2 /lpf (0-2); Color Urine Yellow; Glucose Urine UA Negative (Negative); Ketones Urine Negative (Negative); Leukocyte Esterase Urine Negative (Negative); Nitrite Urine Negative (Negative); Protein Urine Negative (Negative); Specific Gravity Urine 1.017 (1.000-1.030); Urobilinogen Urine Negative (Negative); WBC Urine Automated 0-5 /hpf (0-5); pH Urine 6.5 (4.5-7.5)
[2023-12-22] MEDS: OPTIRAY 320 100ml IV ONE (07:51)
[2023-12-22 08:31] LABS: Potassium 4.2 mmol/L (3.5-5.1)
[2023-12-22] MEDS: fentaNYL citrate PF 100 MCG/2 ML VIAL IV STA (08:55)
[2023-12-22] MEDS: SODIUM CHLORIDE 0.9% 1,000 ML IV ONE ×2 (08:55→10:04)
--- NOTE | 2023-12-22 09:09 | CT Scan Report ---
ABDOMEN AND PELVIS CT WITH IV CONTRAST CT DOSE: 1440.54 mGy.cm HISTORY: L sided flank pain TECHNIQUE: Multiaxial CT images of the abdomen and pelvis were performed following the use of intrave nous contrast. A dose lowering technique was utilized adhering to the principles of ALARA. COMPARISON STUDY: Abdomen and pelvis CT 01/13/2018. FINDINGS: The lung bases are clear. No pneumoperitoneum. No pneumatosis. No acute fractures. Small fa t-containing midline epigastric hernia. There is also a small fat-containing umbilical hernia. These are similar to the prior study. There is suggestion of overlying mesh repair at the umbilical hernia. Prior cholecystectomy. No hepatic or splenic masses. The adrenal glands, pancreas, and right kidney are unremarkable. The main portal vein is patent. Normal caliber abdominal aorta. No retroperitoneal or pelvic lymphadenopathy. There is a 5 mm obstructing stone within the left ureterovesical junction on image 331. This results in mild left hydroureteronephrosis. Delayed left nephrogram likely due to the obstruction. There is moderate left perinephric edema. This is likely reactive to the obstruction . Forniceal rupture also remains in the differential diagnosis. Trace pelvic free fluid. This is like ly physiologic. The uterus is unremarkable. Multiple small cysts noted within the left ovary. No blad ubaldo wall thickening. No bowel wall thickening or obstruction. Normal appendix. IMPRESSION: 1. A 5 mm obstructing stone within the left ureterovesical junction resulting in mild left hydrourete ronephrosis. 2. Left perinephric fluid which is likely reactive to the obstruction. Forniceal rupture remains in t he differential diagnosis. 3. No bowel wall thickening or obstruction. 4. Additional findings as described above. ACT 112: Negative or not required by law. Electronically signed by: Ronnie Terrazas M.D. 12/22/2023 9:07 AM
[2023-12-22] MEDS: METOCLOPRAMIDE HCL INJ 5 MG/ML 2 ML VIAL IV STA (10:04)
[2023-12-22] MEDS: HYDROmorphone INJ 0.5 MG/0.5 ML SYR IV STA (10:04)
--- NOTE | 2023-12-22 11:26 | History & Physical Report ---
Date of Service December 22, 2023 Assessment & Plan (1) Intractable pain: Plan: Admit to med/surge Currently stable nontoxic-appearing Presented to the ED with intractable left-sided flank/abdominal pain and recurrent nausea which began at [address] of the abdomen pelvis with IV contrast shows a 5 mm obstructing stone in the left ureterovesical junction with mild left hydroureteronephrosis CT also noted left perinephric fluid which is likely reactive, but forniceal rupture could not be excluded Patient has chronic pain and is on Percocet, gabapentin, amitriptyline, and tramadol at home, pain control will likely be difficult Will continue with scheduled Tylenol, as needed ibuprofen for mild pain (patient denies hives with ibuprofen), and as needed Dilaudid Will keep n.p.o. for now until she is evaluated by urology Bilateral SCDs for DVT prophylaxis AM CBC, CMP, mag, PT/INR (2) KARO (acute kidney injury): Plan: Creatinine today is 1.25, baseline is near 0.7 Patient currently with mild KARO Continue IV fluids for hydration and consult urology in case arterial stent placement is required, suspect she will pass her stone in the near future as it is currently at the ureterovesical junction Follow a.m. renal function electrolytes (3) Left ureteral calculus: Plan: Noted on CT of the abdomen pelvis with IV contrast today Will start daily Flomax, ongoing maintenance fluids, and urine strainer Urology consult placed Rest of care per intractable pain plan (4) Hydroureter, left: Plan: See left ureteral calculus and KARO plan (5) Chronic back pain: Plan: Will continue patient's amitriptyline, gabapentin Hold home Percocet and tramadol on IV Dilaudid Resume home medications prior to discharge Plan The patient was discussed with Dr. Tripp at the time of the admission History of Present Illness Chief Complaint: abd, BL flank pain Primary Care Provider: Kyrie Stewart is a 38-year-old female with a past medical history significant for intractable low back pain on chronic amitriptyline, gabapentin, and Percocet who presented to the [facility] ED on 12/20/2023 with acute onset of bilateral flank and generalized abdominal pain which started around 1 AM this morning. She remained stable in the ED. Labs were significant for a leukocytosis of 13 with neutrophil predominance of 9, creatinine of 1.25 (b aseline is near 0.7), and UA with trace blood, 3-5 RBC, and 3-[address] of the abdomen pelvis with IV contrast was read as a 5 mm obstructing stone within the left urovesicular junction resulting in mild left hydro utero nephrosis. A left perinephric fluid which is likely reactive to the obstruction. Forniceal rupture remains in the differential diagnosis. It was negative for other acute findings. Prior to admission the patient was given 1 g IV Tylenol, 2 L NSS, 4 mg IV Zofran, 0.5 mg IV Dilaudid, 75 mcg IV fentanyl, total of 8 mg IV Zofran, 12.5 mg IV Benadryl, and 10 mg IV Reglan. Patient was lying in bed and appears uncomfortable due to her ongoing left- sided flank/abdominal pain but is nontoxic-appearing. States that she was at work early this morning around 1 AM when she had acute onset of left-sided flank pain radiating to the left abdomen, severe nausea, and diaphoresis. She took 800 mg ibuprofen without improvement in her symptoms prior to arrival. Denies a previous history of kidney stones. Denies current urinary symptoms such as dysuria, kyrie hematuria, increased urinary frequency. Denies recent chest pain, shortness of breath, hematemesis, diarrhea, and recent trauma. She does smoke approximately 1 pack of cigarettes daily. Please refer to Dr. Tripp's attestation for any changes to the treatment plan. Allergies Allergy/AdvReac Type Severity Reaction Status Date / Time cephalexin Allergy Intermediate face Verified 01/09/23 09:13 swelling Cipro Allergy Intermediate face Verified 06/20/17 05:38 swelling ciprofloxacin Allergy Intermediate face Verified 01/09/23 09:13 swelling shellfish derived Allergy Intermediate "felt like Verified 01/09/23 09:13 I was on fire" chlorpromazine Allergy Mild HIVES Verified 01/09/23 09:13 ketorolac Allergy Mild HIVES Verified 01/09/23 09:13 Penicillins Allergy Mild HIVES- HAS Verified 01/09/23 09:[address] JASON Home Medications Medication Instructions Recorded Confirmed Type amitriptyline 25 mg tablet 75 mg PO DAILY 01/25/20 12/22/23 History gabapentin 600 mg tablet 600 mg PO QID 01/25/20 12/22/23 History (Neurontin) hydrocodone 7.5 mg-acetaminophen 1 tab PO Q8H PRN Pain 01/25/20 12/22/23 History 325 mg tablet sumatriptan succinate 50 mg tablet 50 mg PO DIRECTED PRN Migraine 12/22/23 12/22/23 History Headache tramadol 50 mg tablet 50 mg PO HS 12/22/23 12/22/23 History Past Med/Surg History Problem List (Updated 12/22/23 @ 15:53 by Jai Dill MD) Encounter for pre-operative examination Nausea & vomiting (Acute) Abdominal pain (Acute) Intractable pain Hydroureter, left Left ureteral calculus (Acute) Congenital heart disease Heart palpitations History of tonsillectomy and adenoidectomy Delayed union fractures Foot fracture, left Abdominal pain (Acute) Left knee pain (Acute) Low back pain (Acute) Previous section complicating Right flank pain (Acute) Urinary tract infection (Acute) Urinary tract infection (Acute) Medical History (Updated 12/22/23 @ 15:53 by Jai Dill MD) KARO (acute kidney injury) Chronic back pain Migraine Heart disease Surgical History Hx of hernia repair Hx of oophorectomy Hx of section History of open heart surgery Family History Other Cancer Diabetes Heart disease Pulmonary embolism Social History Smoking Status: Current every day smoker Tobacco Type: Cigarettes Second Hand Exposure: Yes; Do You Dip or Chew Tobacco: No; Tobacco Cessation Education Requested by Patient: Yes Hx Alcohol Use: No Hx Substance Use: No Preferred Language: Irish Communication Ability: Effective Job Spotter Required: No Beliefs That Will Affect Care: None marital status: Single Current Living Situation: Family current occupational status: employed current occupation: Works @ [employer] Other Information That Helps Us Care for You: No Feels Safe at Home: Yes Safety Concerns: Feels Safe At This Time Assistive Devices: None Physical Exam Physical Exam: Physical Exam: General: In mild distress due to pain, stated age, well-nourished, non-toxic appearing HEENT: Normocephalic, atraumatic, no scleral icterus, pupils around round, symmetrical, and reactive to light, moist mucus membranes, trachea midline, no thyromegaly Chest/Pulm: No respiratory distress, symmetrical chest expansion, clear breath sounds throughout Cardiac: RRR, no murmurs noted Abdomen: Negative for ascites and bruising, normoactive bowel sounds, soft, significantly tender to palpation in the left upper/lower abdominal pain : + left CVA tenderness, negative right Musculoskeletal: Symmetrical and without signs of acute trauma, upper and lower extremities with full ROM, no atrophy, spasticity, or flaccidity Extremities: Radial, dorsalis pedis, and posterior tibial pulses are intact and symmetrical, no edema noted in the BL LE's Skin: Warm, dry, no rashes , lesions, or scars noted Neuro: Alert and oriented to person, place, month, year, and president, no focal defects, no tremors noted Psych: Mild distress, calm and cooperative during the exam Results & Data Results & Data Vital Signs (Past 12 Hours) Vital Signs Temp Pulse Pulse Resp BP BP Pulse Ox 12/22/23 10:49 63 12/22/23 09:00 65 18 137/84 97 12/22/23 06:27 74 12/22/23 06:02 36.9 C 77 20 152/92 H 98 O2 Del Method 12/22/23 10:49 12/22/23 09:00 Room Air 12/22/23 06:27 12/22/23 06:02 Room Air Laboratory Results Abnormal lab results 12/22/23 12/22/23 Range/Units 06:15 07:17 WBC 13.50 H (4.8-10.8) K/ul MPV 9.2 L (9.4-12.4) fL Neut # (Auto) 9.43 H (1.40-6.50) K/uL Mckinley # (Auto) 0.85 H (0.11-0.59) K/uL Creatinine 1.25 H (0.6-1.2) mg/dl Glucose 115 H (70-99(Fasting)) mg/dl Urine Blood Trace H (Negative) Urine RBC (Auto) 3-5 H (0-2) /hpf U Epithel Cells (Auto) 3-5 H (0-2) /hpf Diagnostic Findings Abdomen/Pelvis CT 12/22/23 06:[address] WITH IV CONTRAST CT DOSE: 1440.54 mGy.cm HISTORY: L sided flank pain TECHNIQUE: Multiaxial CT images of the abdomen and pelvis were performed following the use of intravenous contrast. A dose lowering technique was utilized adhering to the principles of ALARA. COMPARISON STUDY: Abdomen and pelvis CT 01/13/2018. FINDINGS: The lung bases are clear. No pneumoperitoneum. No pneumatosis. No acute fractures. Small fat-containing midline epigastric hernia. There is also a small fat-containing umbilical hernia. These are similar to the prior study. There is suggestion of overlying mesh repair at the umbilical hernia. Prior cholecystectomy. No hepatic or splenic masses. The adrenal glands, pancreas, and right kidney are unremarkable. The main portal vein is patent. Normal caliber abdominal aorta. No retroperitoneal or pelvic lymphadenopathy. There is a 5 mm obstructing stone within the left ureterovesical junction on image 331. This results in mild left hydroureteronephrosis. Delayed left nephrogram likely due to the obstruction. There is moderate left perinephric edema. This is likely reactive to the obstruction. Forniceal rupture also remains in the differential diagnosis. Trace pelvic free fluid. This is likely physiologic. The uterus is unremarkable. Multiple small cysts noted within the left ovary. No bladder wall thickening. No bowel wall thickening or obstruction. Normal appendix. IMPRESSION: 1. A 5 mm obstructing stone within the left ureterovesical junction resulting in mild left hydroureteronephrosis. 2. Left perinephric fluid which is likely reactive to the obstruction. Forniceal rupture remains in the differential diagnosis. 3. No bowel wall thickening or obstruction. 4. Additional findings as described above. ACT 112: Negative or not required by law. Electronically signed by: Ronnie Terrazas M.D. 12/22/2023 9:07 AM Code Status & VTE Plan Code Status Full code VTE Prophylaxis Plan VTE Prophylaxis will be ordered: Yes Supervising Physician Co-Signing Physician Notes I personally saw and examined the patient. I verified all small points and agree with Dino Medellin PA-C with the following exceptions and/or additions: 38 year old female who present to the ER due to left sided abdominal / flank pain with associated nausea and diaphoresis. O/E HS RRR, systolic 2/6 murmurs LSB (pt reports chronic and previously investigated), Chest CTAB, Abdo SNT, left CVA tenderness A/P Ureterolithiasis - already has chronic pain on tramadol and [place] outpatient. KARO - suspect mostly pre-renal, given young age and mildly elevated Cr, ok to continue ibuprofen as long as improving by tomorrow. Continue IV fluids and repeat with AM labs PG Care Time/CCT Total # of Minutes Spent Total Time Spent with Patient: Total time spent is greater than 50% in coordination of care (as documented) at patient's floor/unit and/or counseling patient: C[place] [address] INT INP/OBS CARE 2/55MIN Patient Type Established Medical Decision Making Moderate Complexity Diagnoses Intractable pain R52 KARO (acute kidney injury) N17.9 Left ureteral calculus N20.1 Hydroureter, left N13.4 Chronic back pain M54.9; G89.29
[2023-12-22] MEDS ORDERED: IBUPROFEN 200 MG/10 ML UDC PO PRN (11:36)
[2023-12-22] MEDS: TAMSULOSIN HCL 0.4 MG CAP PO ONE (11:39)
[2023-12-22] MEDS: LACTATED RINGER'S 1,000 ML IV SCH (12:42)
[2023-12-22] MEDS: ACETAMINOPHEN 325 MG TAB PO SCH (12:56)
[2023-12-22] MEDS: HYDROmorphone INJ 1 MG/ML SYRINGE IV PRN ×2 (12:57→17:48)
--- NOTE | 2023-12-22 13:02 | Urology Consultation ---
Date of Consultation December 22, 2023 Assessment & Plan (1) Abdominal pain: (2) Intractable pain: (3) Left ureteral calculus: (4) Hydroureter, left: (5) KARO (acute kidney injury): Plan 38-year-old female who presented to the ER due to left flank and abdominal pain. Urology consulted for 5 mm left UVJ stone with associated hydroureteronephrosis and possible forniceal rupture Vital signs stable and patient is afebrile No current urine or blood cultures She continues to report significant left-sided abdominal pain Labs revealed leukocytosis, KARO, urinalysis not indicative of infection Recommend: Continue pain management per medical team Discussed options with patient including cystoscopy, left ureteral stent placement, possible left uteroscopy with laser lithotripsy/stone removal, retrograde pyelogram. Risk and benefits of procedure discussed. Ureteral stents discussed in detail. We also discussed trial of passage versus surgery Patient aware that this could require multiple procedures Patient elects surgical intervention today Patient should remain n.p.o. We will cover with antibiotics preoperatively Or notified and patient added onto schedule Continue medical management per primary team Attending note: Patient independently assessed, examined, interviewed, and evaluated. Agree with note as above. Patient's vitals and labs were all reviewed. Pertinent values in the HPI and plan section. Imaging was reviewed interpreted by myself. Agree with read. Vitals were reviewed. Patient currently afebrile. Temperature 36.5. Respirations 18. Pulse 64. Blood pressure 111/71. Satting 98% on room air. All labs were reviewed. Values in the HPI or plan section. White count currently 13.5 creatinine 1.25. Patient's imaging was reviewed and interpreted by myself. Patient has Perinephric stranding with possible signs of calyceal rupture. Has obstructing stone on the left at the distal ureter. Discussed findings extensively with patient and family. Reviewed with nurse practitioner as well as consulting physicians/team. Patient's complicated medical and surgical history was reviewed and summarized above. Patient's surgical, medical, social, and family history were all reviewed with pertinent values as above. Discussed patient's current diagnosis as well as concerns and issues. Reviewed different options moving forward. Discussed potential risks and benefits as well as possible options and concerns. Reviewed potential surgical options and interventions. Discussed potential issues and concerns related to intervention. Risk and benefits were discussed extensively with patient and any available family. Discussed potential risks related to anesthesia. Discussed risks of bleeding infection and injury. Discussed extensively different options. Discussed observation and symptom control. Patient having considerable pain and discomfort. Did discuss concerns related to possible calyceal rupture. Discussed possibility of development of urinoma. Reviewed risks and benefits of procedure. Discussed potential risk for in fection bleeding irritation stent discomfort injury and other problems. Risks and benefits discussed at length for procedure. These include bleeding, infection, injury to surrounding tissues or organs, and risks associated with anesthesia. Patient states understanding and agrees to proceed. Will sign consent and proceed. Patient's complicated medical and surgical history is reviewed and summarized above all imaging was reviewed interpreted by myself. All labs were reviewed. Will plan to continue with close monitoring after procedure will likely need stent for approximately 1 to 2 weeks after procedure to allow decompression of the system. Will plan for cystoscopy with possible left ureteroscopy and stone treatment and stent placement. History of Present Illness Attending Physician: Ankit Tripp MD History of Present Illness 38-year-old female who presented to the ER on 12/22/2023 for left-sided abdominal and flank pain. Patient has chronic pain and is on Percocet, gabapentin, amitriptyline, and tramadol at home, pain control will likely be difficult per hospital team. Ct of A/P with contrast On 12/22/2023 showed a 5 mm obstructing stone at the left UVJ resulting in mild left hydroureteronephrosis. Left perinephric fluid which is likely reactive due to the obstruction, forniceal rupture remains in the differential diagnosis. Urinalysis showed trace blood with 3-5 RBCs and 3-5 epithelial cells, no ba cteria, negative leukocyte Estrace, negative nitrates There are no cultures pending. Labs reviewed 12/22/2023 Creatinine 1.25 Glucose 115 WBCs 13.5 Hemoglobin 15.4 Patient is having significant left-sided pain that is uncontrolled and causing associated nausea and vomiting. Denies changes to her baseline urinary symptoms, denies fevers, chills, gross hematuria or dysuria. She has no history of nephrolithiasis. Allergies Allergy/AdvReac Type Severity Reaction Status Date / Time cephalexin Allergy Intermediate face Verified 01/09/23 09:13 swelling Cipro Allergy Intermediate face Verified 06/20/17 05:38 swelling ciprofloxacin Allergy Intermediate face Verified 01/09/23 09:13 swelling shellfish derived Allergy Intermediate "felt like Verified 01/09/23 09:13 I was on fire" chlorpromazine Allergy Mild HIVES Verified 01/09/23 09:13 ketorolac Allergy Mild HIVES Verified 01/09/23 09:13 Penicillins Allergy Mild HIVES- HAS Verified 01/09/23 09:[address] JASON Home Medications Medication Instructions Recorded Confirmed Type amitriptyline 25 mg tablet 75 mg PO DAILY 01/25/20 12/22/23 History gabapentin 600 mg tablet 600 mg PO QID 01/25/20 12/22/23 History (Neurontin) hydrocodone 7.5 mg-acetaminophen 1 tab PO Q8H PRN Pain 01/25/20 12/22/23 History 325 mg tablet sumatriptan succinate 50 mg tablet 50 mg PO DIRECTED PRN Migraine 12/22/23 12/22/23 History Headache tramadol 50 mg tablet 50 mg PO HS 12/22/23 12/22/23 History Patient History Medical History Migraine Heart disease Surgical History Hx of hernia repair Hx of oophorectomy Hx of section History of open heart surgery Family History Other Cancer Diabetes Heart disease Pulmonary embolism Social History Smoking Status: Current every day smoker Tobacco Type: Cigarettes Second Hand Exposure: Yes; Do You Dip or Chew Tobacco: No; Tobacco Cessation Education Requested by Patient: Yes Hx Alcohol Use: No Hx Substance Use: No Preferred Language: Cuban Communication Ability: Effective [employer] Internship Required: No Beliefs That Will Affect Care: None marital status: Single Current Living Situation: Family current occupational status: employed current occupation: Works @ [employer] Other Information That Helps Us Care for You: No Feels Safe at Home: Yes Safety Concerns: Feels Safe At This Time Assistive Devices: None Review of Systems Constitutional: as per Subjective / HPI Genitourinary: as per Subjective / HPI Physical Exam Constitutional: well developed, well nourished and + in distress Respiratory: normal respiratory effort and able to speak in complete sentences Musculoskeletal: Extremities: extremities normal to inspection Psychiatric: Orientation: alert and oriented x 3 Results & Data Vital Signs (Past 12 Hours) Vital Signs Temp Pulse Pulse Pulse Resp BP BP 12/22/23 11:55 36.7 C 61 18 119/76 12/22/23 11:36 75 28 H 12/22/23 11:30 117/75 12/22/23 10:49 63 12/22/23 09:00 65 18 137/84 12/22/23 06:27 74 12/22/23 06:02 36.9 C 77 20 152/92 H Pulse Ox O2 Del Method 12/22/23 11:55 98 Room Air 12/22/23 11:36 98 12/22/23 11:30 12/22/23 10:49 12/22/23 09:00 97 Room Air 12/22/23 06:27 12/22/23 06:02 98 Room Air PG Care Time/CCT Total # of Minutes Spent Total Time Spent with Patient: Total time spent is greater than 50% in coordination of care (as documented) at patient's floor/unit and/or counseling patient: Coding Level of Care Code 29620 IN/OBS CONSULT LVL 4,60M Diagnoses Abdominal pain R10.32 Abdominal location: left lower quadrant Intractable pain R52 Left ureteral calculus N20.1 Hydroureter, left N13.4 KARO (acute kidney injury) N17.9 (1) Abdominal pain Abdominal location: left lower quadrant Qualified Code(s): R10.32 - Left lower quadrant pain
[2023-12-22] MEDS: GABAPENTIN 600 MG TAB PO SCH (13:50)
[2023-12-22] MEDS ORDERED: LIDOCAINE 2% 2 ML VIAL/AMP(20MG/ML) INFIL ONE (14:14)
[2023-12-22] MEDS ORDERED: ONDANSETRON INJ 2 MG/ML 2 ML VIAL ONE (14:14)
[2023-12-22] MEDS ORDERED: PROPOFOL IV EMULSION 10 MG/ML 20 ML VIAL IV ONE (14:14)
[2023-12-22] MEDS ORDERED: DEXAMETHASONE SOD INJ 4 MG/ML VIAL ONE (14:14)
[2023-12-22] MEDS ORDERED: fentaNYL citrate PF 100 MCG/2 ML VIAL ONE (14:15)
[2023-12-22] MEDS ORDERED: MIDAZOLAM HCL 1 MG/ML 2ML VIAL ONE (14:15)
[2023-12-22] MEDS ORDERED: ePHEDrine sulfate 50 MG/ML AMP IV PRN (14:39)
[2023-12-22] MEDS ORDERED: ATROPINE SULFATE 0.1 MG/ML 10ML SYR IV PRN ×2 (14:39→15:50)
[2023-12-22] MEDS ORDERED: HYDROmorphone INJ 2 MG/ML SYR/VIAL IV PRN (14:39)
[2023-12-22] MEDS ORDERED: GENTAMICIN CONSULT ACTIVE PRN (15:18)
[2023-12-22] MEDS ORDERED: HYDROmorphone INJ 1 MG/ML SYRINGE IV PRN (15:50)
--- NOTE | 2023-12-22 15:53 | Anesthesiology Consultation ---
Date of Service December 22, 2023 Assessment & Plan (1) Encounter for pre-operative examination: Chart Review Chart Review: Acceptable Risk for Surgery and Patient NOT seen in Pre Admission Testing Consults Requested none History Surgery Operation Date: 12/22/23 11:05 Proposed Procedures p Cystoscopy, Left Ureteral Stent Placement, Possible Left Ureteroscopy with Laser Lithotripsy - Jacob Broderick, DO Height/Weight Height: 5 ft 8 in Weight: 90.6 kg Allergies Allergy/AdvReac Type Severity Reaction Status Date / Time cephalexin Allergy Intermediate face Verified 01/09/23 09:13 swelling Cipro Allergy Intermediate face Verified 06/20/17 05:38 swelling ciprofloxacin Allergy Intermediate face Verified 01/09/23 09:13 swelling shellfish derived Allergy Intermediate "felt like Verified 01/09/23 09:13 I was on fire" chlorpromazine Allergy Mild HIVES Verified 01/09/23 09:13 ketorolac Allergy Mild HIVES Verified 01/09/23 09:13 Penicillins Allergy Mild HIVES- HAS Verified 01/09/23 09:[address] JASON Medications Home Medications Medication Instructions Recorded Confirmed Last Taken amitriptyline 25 mg tablet 75 mg PO DAILY 01/25/20 12/22/23 12/21/23 gabapentin 600 mg tablet 600 mg PO QID 01/25/20 12/22/23 12/21/23 (Neurontin) hydrocodone 7.5 mg-acetaminophen 1 tab PO Q8H PRN Pain 01/25/20 12/22/23 12/21/23 325 mg tablet sumatriptan succinate 50 mg tablet 50 mg PO DIRECTED PRN Migraine 12/22/23 12/22/23 Unknown Headache tramadol 50 mg tablet 50 mg PO HS 12/22/23 12/22/23 12/21/23 Active Medications Generic Name Dose Route Start Last Admin Trade Name Freq PRN Reason Stop Dose Admin Acetaminophen 650 mg 12/22/23 13:00 12/22/23 12:56 Acetaminophen 325 Mg Tab PO 01/21/24 12:59 650 mg Q6H PEDRO PABLO Administration Gabapentin 600 mg 12/22/23 13:00 12/22/23 13:50 Gabapentin 600 Mg Tab PO 01/21/24 12:59 600 mg QID PEDRO PABLO Administration Hydromorphone HCl 1 mg 12/22/23 11:17 12/22/23 12:57 Hydromorphone Inj 1 Mg/Ml Syringe IV 01/05/24 11:16 1 mg Q4H PRN Administration Pain(5+) Lactated Ringer's 1,000 mls @ 100 mls/hr 12/22/23 11:45 12/22/23 12:42 Lr IV 12/23/23 07:44 100 mls/hr .Q10H PEDRO PABLO Administration Past Medical History Medical History (Updated 12/22/23 @ 15:53 by Jai Dill MD) KARO (acute kidney injury) Chronic back pain Migraine Heart disease Exercise / Class Metabolic Activity II 4-5 Yardwork/Stairs/Walk up hill Past Family History Family History Other Cancer Diabetes Heart disease Pulmonary embolism Past Surgical History Surgical History Hx of hernia repair Hx of oophorectomy Hx of section History of open heart surgery Past Anesthesia History No Hx of Anesthesia Complications and No Family Hx of Anesthesia Complications History of PONV No Hx of PONV and No Hx of Motion Sickness Social History Smoking Status: Current every day smoker Do You Dip or Chew Tobacco: No Hx Alcohol Use: No Hx Substance Use: No Physical Exam Vital Signs Last Vital Signs Temp 36.9 C 12/22/23 15:39 Pulse 57 L 12/22/23 15:39 Resp 20 12/22/23 15:39 BP 110/75 12/22/23 15:39 Pulse Ox 98 12/22/23 15:39 O2 Del Method Room Air 12/22/23 15:39 Testing Laboratory Results 12/22/23 06:15 12/22/23 07:50 Urine Color Yellow 12/22/23 07:17 Urine Appearance Clear (Clear) 12/22/23 07:17 Urine pH 6.5 (4.5-7.5) 12/22/23 07:17 Ur Specific [place] 1.017 (1.000-1.030) 12/22/23 07:17 Urine Protein Negative (Negative) 12/22/23 07:17 Urine Glucose (UA) Negative (Negative) 12/22/23 07:17 Urine Ketones Negative (Negative) 12/22/23 07:17 Urine Nitrite Negative (Negative) 12/22/23 07:17 Ur Leukocyte Esterase Negative (Negative) 12/22/23 07:17 Urine WBC (Auto) 0-5 /hpf (0-5) 12/22/23 07:17 Urine RBC (Auto) 3-5 /hpf (0-2) H 12/22/23 07:17 U Hyaline Cast (Auto) 0-2 /lpf (0-2) 12/22/23 07:17 U Epithel Cells (Auto) 3-5 /hpf (0-2) H 12/22/23 07:17 Urine Bacteria (Auto) None Seen (None Seen) 12/22/23 07:17
[2023-12-22] MEDS: GENTAMICIN SULFATE 160 MG in DEXTROSE 5% 100 ML IV ONE (16:10)
[2023-12-22] MEDS: DIATRIZOATE MEGLUMINE 30% 100ML VIAL INSTIL ONE (16:40)
--- NOTE | 2023-12-22 16:52 | Operative Report ---
PG Post Operative Report Pre & Post Diagnosis Operation Date: 12/22/23 11:05 Pre-Op Diagnosis: (1) Left ureteral calculus (2) Hydroureter, left (3) Acute Kidney Injury Post-Op Diagnosis: (1) Left ureteral calculus (2) Hydroureter, left (3) Acute Kidney Injury I identified the patient and participated in the time-out.: Yes Procedure Operation Date: 12/22/23 11:05 Actual Procedures p Cystoscopy with Left Ureteroscopy, Stone Basket Extraction, Ureteral Dilation, Retrograde Pyelogram, and Ureteral Stent Placement, Left (Not Applicable) - Jacob Broderick DO Surgeon Jacob Broderick, II, DO Visual Merchandising Director None Estimated Blood Loss 1 Findings Consistent with Post-Op Diagnosis Significant stone in the distal ureter with impaction in stricture at UO. Moder ate hydronephrosis. Specimens Stone Fragments - Left Ureter Drains 4.8 Fr x 26 cm Stent Left Anesthesia Type General Complications none Disposition Disposition: Recovery Room Indications Patient with bothersome stones. Risks and benefits discussed at length. Description of Procedure Patient was consented and brought back to the operating room. Patient was placed under anesthesia in the supine position and moved to the dorsal lithotomy position. Patient was prepped and draped in the regular sterile fashion. A time out was completed. A 30degree Cystoscope was placed into the bladder and the entire bladder was examined. The UO's were identified. The UO was cannulized with a catheter and a retrograde pyelogram was completed. A wire was then placed. The Rigid ureteroscope was taken into the ureter. The stone was identified impacted into a strictured area near the UO. The stone was displaced proximally and the ureter was dilated. The stone fractured into two pieces which were then grasped and removed and sent for analysis. The entire area was once again examined. No residual large fragments or areas of concern were noted. The scope was slowly removed with the wire left in place. Contrast was placed through the scope for a pyelogram to assist in stent placement. The entire ureter was examined as the scope was slowly removed. No obstructions or other areas of concern were noted. With the wire in place, a 4.8 Fr Double J stent was placed. It was confirmed with fluoroscopy. With the stent in place, the bladder was emptied. The scope was removed. The patient was cleaned, aroused from anesthesia, and transferred to the pacu in stable condition having tolerated the procedure well with no complications. I was present and participated in all aspects of the procedure. The patient will be monitored in the PACU until transferred. Plan to remove stent in approx 1-2 weeks in office. I attest to the content of the Intraoperative Record and any orders documented therein. Any exceptions are noted below.
--- NOTE | 2023-12-22 17:00 | Fluoroscopy Report ---
FL retrograde includes kub CLINICAL HISTORY: LT CYSTO COMPARISON STUDY: None. FLUOROSCOPY TIME: 15 second FLUOROSCOPY IMAGES: 2 Ka,r: 4.1 mGy FINDINGS: Retrograde opacification of the left renal collecting system followed by placement of a lef t ureteral stent. The ureteral stent appears in good position. IMPRESSION: Fluoroscopic assistance as above. ACT 112: Negative or not required by law. Electronically signed by: Ronnie Terrazas M.D. 12/22/2023 4:58 PM
[2023-12-22] MEDS: fentaNYL citrate PF 100 MCG/2 ML VIAL IV PRN (17:05)
--- NOTE | 2023-12-22 17:39 | Anesthesiology Progress Note ---
Date of Service December 22, 2023 Anesthesia Post Procedure Vital Signs Vital Signs: Temp Pulse Pulse Pulse Resp BP BP 12/22/23 17:35 56 L 10 L 117/74 12/22/23 17:25 54 L 15 108/56 L 12/22/23 17:15 57 L 12 114/63 12/22/23 17:05 58 L 11 L 109/68 12/22/23 16:56 36.7 C 73 20 96/65 L 12/22/23 15:39 36.9 C 57 L 20 110/75 12/22/23 15:03 36.5 C 64 18 111/71 12/22/23 11:55 36.7 C 61 18 119/76 12/22/23 11:36 75 28 H 12/22/23 11:30 117/75 12/22/23 10:49 63 12/22/23 09:00 65 18 137/84 12/22/23 06:27 74 12/22/23 06:02 36.9 C 77 20 152/92 H Pulse Ox O2 Del Method O2 Flow Rate 12/22/23 17:35 98 Room Air 0 12/22/23 17:25 97 Nasal Cannula 2 12/22/23 17:15 98 Nasal Cannula 2 12/22/23 17:05 99 Oxymask 3 12/22/23 16:56 99 Oxymask 5 12/22/23 15:39 98 Room Air 12/22/23 15:03 98 Room Air 12/22/23 11:55 98 Room Air 12/22/23 11:36 98 12/22/23 11:30 12/22/23 10:49 12/22/23 09:00 97 Room Air 12/22/23 06:27 12/22/23 06:02 98 Room Air Pain Intensity Bilateral Back: Pain Intensity: 3 Transfer of Care Handoff Completed per policy Notes Mental Status: alert / awake / arousable and participated in evaluation Patient Amnestic to Procedure: Yes Nausea / Vomiting: adequately controlled Pain: adequately controlled Airway Patency, RR, SpO2: stable & adequate BP & HR: stable & adequate Hydration State: stable & adequate Anesthetic Complications: no major complications apparent and Pt Satisfied with anesthetic care
[2023-12-22] MEDS ORDERED: HYDROmorphone INJ 0.5 MG/0.5 ML SYR IV PRN (19:27)
[2023-12-22] MEDS ORDERED: NALOXONE HCL 0.4 MG/1 ML VIAL/CARP IV PRN (19:30)
[2023-12-22] MEDS: IBUPROFEN 200 MG TAB PO STA (19:37)
[2023-12-22] MEDS: HYDROmorphone INJ 0.5 MG/0.5 ML SYR IV PRN (19:38)
[2023-12-22] MEDS: AMITRIPTYLINE HCL 25 MG TAB PO SCH (20:33)
[2023-12-22] MEDS: ONDANSETRON INJ 2 MG/ML 2 ML VIAL IV PRN (20:36)
--- NOTE | 2023-12-23 08:07 | Urology Progress Note ---
Date of Service December 23, 2023 Assessment & Plan (1) Abdominal pain: (2) Intractable pain: (3) Left ureteral calculus: (4) Hydroureter, left: (5) KARO (acute kidney injury): Plan 38-year-old female S/p postop day 1 cystoscopy, left uteroscopy, stone removal, left stent placement due to left flank pain and abdominal Vital signs stable and patient is afebrile Labs currently within normal limits Recommend: Continue pain management per medical team Continue medical management per primary team We will arrange outpatient follow-up in 1 to 2 weeks for stent removal Continue Flomax upon discharge, can consider oxybutynin and Pyridium for stent discomfort Patient aware of concerning signs or symptoms that she should call the office prior to stent removal Admission and Anticipated Discharge Date Admission Date: December 22, 2023 Subjective Patient resting comfortably in bed Handling stent appropriately Pain level has decreased after surgical intervention yesterday Admitting to left-sided flank pain-has been getting pain management per hospital team Nausea associated with pain Does have some urinary frequency Denies other acute urological concerns Labs reviewed: 12/23/2023 Creatinine 0.72 WBCs 10.55 Glucose 84 Review of Systems Constitutional: as per Subjective / HPI Genitourinary: as per Subjective / HPI Physical Exam Constitutional: well developed, well nourished and + in distress Respiratory: normal respiratory effort and able to speak in complete sentences Musculoskeletal: Extremities: extremities normal to inspection Psychiatric: Orientation: alert and oriented x 3 Results & Data Vital Signs (Past 12 Hours) Vital Signs Temp Pulse Resp BP Pulse Ox O2 Del Method 12/23/23 07:17 36.5 C 60 18 110/72 95 Room Air 12/23/23 04:25 36.8 C 69 16 122/80 95 Room Air 12/23/23 00:31 36.6 C 72 18 106/69 96 Room Air 12/22/23 21:38 Room Air 12/22/23 20:55 36.6 C 69 18 110/70 96 Room Air PG Care Time/CCT Total # of Minutes Spent Total Time Spent with Patient: Total time spent is greater than 50% in coordination of care (as documented) at patient's floor/unit and/or counseling patient: Coding Level of Care Code 76029 SUB INP/OBS CARE 2/35MIN Diagnoses Abdominal pain R10.32 Abdominal location: left lower quadrant Intractable pain R52 Left ureteral calculus N20.1 Hydroureter, left N13.4 KARO (acute kidney injury) N17.9 (1) Abdominal pain Abdominal location: left lower quadrant Qualified Code(s): R10.32 - Left lower quadrant pain
[2023-12-23 08:48] LABS: Basophils # (auto) 0.03 K/uL (0.00-0.20); Basophils % (auto) 0.3 %; Eosinophils % (auto) 0.9 %; Hematocrit (blood only) 38.2 % (37.0-47.0); Hemoglobin 12.7 g/dl (12.0-16.0); Immature Granulocytes # (auto) 0.03 K/uL (0.01-0.20); Immature Granulocytes % (auto) 0.3 %; Lymphocytes # (auto) 2.64 K/uL (1.20-3.40); Mean Corpuscular Hemoglobin 30.2 pg (25.0-34.0); Mean Corpuscular Hgb Conc 33.2 g/dL (32.0-36.0); Mean Platelet Volume 9.1 fL (9.4-12.4); Monocytes # (auto) 0.62 K/uL (0.11-0.59); Monocytes % (auto) 5.9 %; Neutrophils # (auto) 7.13 K/uL (1.40-6.50); Neutrophils % (auto) 67.6 %; Platelet Count 173 K/uL (130-400); RDW Standard Deviation 42.5 fL (36.4-46.3); White Blood Count 10.55 K/ul (4.8-10.8)
[2023-12-23] MEDS: IBUPROFEN 200 MG TAB PO PRN (08:56)
[2023-12-23] MEDS ORDERED: AMITRIPTYLINE HCL 25 MG TAB PO SCH (09:00)
[2023-12-23 09:52] LABS: Albumin Globulin Ratio 1.9 (0.9-2); Albumin Level 3.6 gm/dl (3.4-5.0); BUN Creatinine Ratio 18.1 (10-20); Bilirubin,Total 0.5 mg/dl (0.2-1.0); Calcium 8.5 mg/dl (8.6-10.3); Creatinine Clr Calc Pharmacy 123.5 ml/min; Est GFR (African American) 122.3 ml/min; Est GFR (Non-African American) 105.5 ml/min; Globulin 1.9 gm/dl (2.5-4.0); Magnesium 1.9 mg/dl (1.7-2.4); Total Protein 5.5 gm/dl (6.0-8.3)
--- NOTE | 2023-12-23 11:13 | Discharge Summary ---
Date of Service December 23, 2023 Admission HPI Per Admitting Provider Pat is a 38-year-old female with a past medical history significant for intractable low back pain on chronic amitriptyline, gabapentin, and Percocet who presented to the [facility] ED on 12/20/2023 with acute onset of bilateral flank and generalized abdominal pain which started around 1 AM this morning. She remained stable in the ED. Labs were significant for a leukocytosis of 13 with neutrophil predominance of 9, creatinine of 1.25 (baseline is near 0.7), and UA with trace blood, 3-5 RBC, and 3-[address] of the abdomen pelvis with IV contrast was read as a 5 mm obstructing stone within the left urovesicular junction resulting in mild left hydro utero nephrosis. A left perinephric fluid which is likely reactive to the obstruction. Forniceal rupture remains in the differential diagnosis. It was negative for other acute findings. Prior to admission the patient was given 1 g IV Tylenol, 2 L NSS, 4 mg IV Zofran, 0.5 mg IV Dilaudid, 75 mcg IV fentanyl, total of 8 mg IV Zofran, 12.5 mg IV Benadryl, and 10 mg IV Reglan. Patient was lying in bed and appears uncomfortable due to her ongoing left- sided flank/abdominal pain but is nontoxic-appearing. States that she was at work early this morning around 1 AM when she had acute onset of left-sided flank pain radiating to the left abdomen, severe nausea, and diaphoresis. She took 800 mg ibuprofen without improvement in her symptoms prior to arrival. Denies a previous history of kidney stones. Denies current urinary symptoms such as dysuria, kyrie hematuria, increased urinary frequency. Denies recent chest pain, shortness of breath, hematemesis, diarrhea, and recent trauma. She does smoke approximately 1 pack of cigarettes daily. Please refer to Dr. Tripp's attestation for any changes to the treatment plan. Principal Diagnosis Kidney stone Discharge Exam Constitutional WD/WN, vitals as above Eyes PERRL, conjunctivae normal, anicteric sclerae Respiratory normal respiratory effort, lungs clear to auscultation Cardiovascular RRR, no murmur, no edema Gastrointestinal (Abdomen) suprapubic tenderness Skin no rashes, warm and dry Psychiatric A+Ox3, euthymic affect Discharge Data Allergies Allergy/AdvReac Type Severity Reaction Status Date / Time cephalexin Allergy Intermediate face Verified 01/09/23 09:13 swelling Cipro Allergy Intermediate face Verified 06/20/17 05:38 swelling ciprofloxacin Allergy Intermediate face Verified 01/09/23 09:13 swelling shellfish derived Allergy Intermediate "felt like Verified 01/09/23 09:13 I was on fire" chlorpromazine Allergy Mild HIVES Verified 01/09/23 09:13 ketorolac Allergy Mild HIVES Verified 01/09/23 09:13 Penicillins Allergy Mild HIVES- HAS Verified 01/09/23 09:[address] JASON Consultations 12/22/23 11:33 Consult Urology Routine 12/22/23 11:35 ED Decision to Admit Stat Procedures Performed Operation Date: 12/22/23 11:05 Actual Procedures p Cystoscopy, Ureteroscopy, Stone Basket Extraction, Ureteral Dilation, Retrograde Pyelogram, Ureteral Stent Placement, Left (Not Applicable) - Jacob Broderick, Ordered Studies Retrograde Pyelogram 12/22/23 00:00 IMPRESSION: Fluoroscopic assistance as above. Electronically signed by: Ronnie Terrazas M.D. 12/22/2023 4:58 PM Abdomen/Pelvis CT 12/22/23 06:56 IMPRESSION: 1. A 5 mm obstructing stone within the left ureterovesical junction resulting in mild left hydroureteronephrosis. 2. Left perinephric fluid which is likely reactive to the obstruction. Forniceal rupture remains in the differential diagnosis. 3. No bowel wall thickening or obstruction. 4. Additional findings as described above. Electronically signed by: Ronnie Terrazas M.D. 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 CTAP with IV contrast revealed 5mm obstructing stone in left ureterovesical junction with mild left hydroureteronephrosis. Patient is on control pain medication at home including Percocet, gabapentin, amitriptyline, and tramadol at home. Urology was consulted and a cystoscopy was performed with stent placement on 12/21. She is to follow up with urology in 1-2 weeks for stent removal. She is to continue on her hydrocodone three times daily at home and use Pyridium as needed for bladder/stent discomfort. WBC stable at time of discharge. Patient was sent home on 5 days of Bactrim DS BID. Patient also was given Flomax while inpatient. (2) KARO (acute kidney injury): Creatinine today is 1.25, baseline is near 0.7. Day of discharge revealed creatinine returned normal (0.72). IVF given while inpatient. (3) Left ureteral calculus: see intractable pain plan (4) Hydroureter, left: See left ureteral calculus and KARO plan (5) Chronic back pain: Pain medications were resumed upon discharge. Total Time Total Time Spent Total Time Spent (In Minutes): 35 Total Time Includes: Examination of the Patient, Discharge Planning and Medication Reconciliation Discharge Plan Discharge Items Patient Disposition: Home - Self-Care Reason For Visit: KIDNEY STONE, KARO, UNCONTROLLED PAIN Discharge Diagnosis: Kidney stone Activity: Resume your previous activity Non-emergency contact: Primary Care Provider and Urologist Call non-emergency contact if: you have any medication questions, your symptoms worsen, your pain is not controlled, your pain is worsening and you have a fever Follow-up/Referrals: Jacob Broderick DO [Physician] - Kyrie Kevin M.D. [Primary Care Provider] - (Please call your PCP and make a hospital follow up visit in 7-10 days.) Diet: Regular Addtl Attending Provider Instructions: Mrs. Velasquez, You were recently hospitalized for experiencing left lower back/abdominal pain. Upon further testing, a kidney stone was found. You had a procedure performed by urology on 12/22/2023. Please see recommendations below regarding your discharge. 1. Please follow up with urology regarding stent removal in 1-2 weeks. They will be in contact with you 2. Please take Bactrim twice daily for the next 5 days. -Please take with food to avoid GI upset. -Your first dose will be this evening, 12/23/2023. 3. Please continue using your previously prescribed hydrocodone 7.5mg - Tylenol 325 mg tablets every 8 hours for pain. 4. You may use phenazopyridine OTC for stent/urinary discomfort as needed. 5. Please use Zofran every 6 hours as needed for nausea and vomiting. 6. Please drink plenty of fluids 7. You may resume previous outpatient medications. If you develop any worsening pain, fever, chills, nausea, or vomiting please report to the ER for further evaluation. Sincerely, Veronica Pierre PA-C Addtl Perinatal Breastfeeding Assistant Provider Instructions: Please take all medications as prescribed and keep all follow-ups as scheduled. Please call the urology office at [phone] with any questions, concerns or need to reschedule appointments for any reason. We are happy to assist you. The urology office will contact you to arrange a follow-up visit. While you have a ureteral stent in place: Some discomfort is normal. Certain movements may trigger pain or a feeling that you need to urinate. You may also feel mild soreness or pressure before or during urination. These symptoms should go away a few days after the stent is removed. Your urine may be slightly pink or red. This is due to bleeding caused by minor irritation from the stent. This may happen on and off while you have the stent, it is not harmful and is to be expected. Medication to help minimize discomfort or bladder spasms, or to prevent infection may be prescribed. Take this as directed. Drink plenty of fluids to help flush out your urinary tract. When to call [facility] [place] [phone]: Your urine contains heavy blood clots or you are unable to urinate You are constantly leaking urine Fever of 101F or higher, chills, nausea, or vomiting Your pain is not relieved with medication The end of the stent comes out of your urethra Pending Studies at Discharge: No Stand-Alone Forms: My [employer], Work/School Release, Smoking Cessation Medications and DC Order Prescriptions: New ondansetron HCl 4 mg tablet 4 mg PO Q6H PRN (Reason: nausea and vomiting) Qty: 14 0RF sulfamethoxazole-trimethoprim [Bactrim DS] 800-160 mg tablet 1 tab PO BID Qty: 10 0RF Rx Instructions: give 3 days/wk (alternating days) Continued hydrocodone-acetaminophen 7.5-325 mg tablet 1 tab PO Q8H PRN (Reason: Pain) amitriptyline 25 mg tablet 75 mg PO DAILY gabapentin [Neurontin] 600 mg tablet 600 mg PO QID sumatriptan succinate 50 mg tablet 50 mg PO DIRECTED MDD 100 mg PRN (Reason: Migraine Headache) tramadol 50 mg tablet 50 mg PO HS Discharge Orders: Discharge Order (Routine); Ordered 12/23/23 Ordered By: Veronica Logan/Other Patient Handouts: Having a Ureteral Stent, Understanding Kidney Stones, Identifying Kidney Stones Admission Data Admit Date/Time: 12/22/23 11:16 Attending Provider: Antonio Giraldo Admit Provider: Ankit Tripp Primary Care Provider: Kyrie Kevin Other Providers: Jacob Broderick; Ankit Tripp Other Interventions: Discharge Summary Assessment (RN) Last Done: 12/23/23 11:49 Supervising Physician Co-Signing Physician Notes The patient was not seen by me. The chart was reviewed. Case discussed with CARMEN Storey. Agree with assessment and plan Coding Level of Care Code 40826 INP/OBS DISCH >30 MIN Diagnoses Intractable pain R52 KARO (acute kidney injury) N17.9 Left ureteral calculus N20.1 Hydroureter, left N13.4 Chronic back pain M54.9; G89.29
[2023-12-23] MEDS ORDERED: TAMSULOSIN HCL 0.4 MG CAP PO SCH (21:00)
== END 2023-12-23 12:42 | disposition home or self-care (01) ==
LOC: ED 05:53 → 3W 11:16 → SUATTDRO 11:16 → INTOOBSV 11:16 → 3W 11:45